=== PATIENT | male | born 1965 | race Caucasian/White ===

== ENCOUNTER 2016-10-26 21:56 | Observation (INO) | payer MEDICAID, MEDICARE ==
--- NOTE | 2016-10-26 22:29 | ED ---
Chest Pain HPI - General Chief Complaint: Chest Pain Stated Complaint: Chest Pain/Rib Pain Time Seen by Provider: 10/26/16 22:06 Source: EMS Mode of arrival: EMS Limitations: no limitations - History of Present Illness Initial Comments: 51 years old male for transfer from [facility] for the further evaluation of his chest pain. He'll chest pain for last 2 days he denies any chest pain today he has shortness of breath no recall some chronic shortness of breath since he has smoked for about 40 years. Denies any chest pain today he has shortness of breath no pleuritic chest pain at all he has been coughing and brings up lots of phlegm has nausea no vomiting. He does have a family history of heart disease his dad had AL at the age of 63 and he himself is a multiple risk factors - Related Data Home Medications Medication Instructions Recorded Confirmed ALPRAZolam [Xanax] 0.5 mg PO TID PRN 10/26/16 10/26/16 Fenofibrate [Lofibra] 160 mg PO DAILY 10/26/16 10/26/16 Losartan Potassium [Cozaar] 100 mg PO DAILY 10/26/16 10/26/16 Metoprolol Tartrate [Lopressor] 25 mg PO DAILY 10/26/16 10/26/16 Venlafaxine HCl [Effexor XR] 150 mg PO DAILY 10/26/16 10/26/16 Zolpidem [Ambien] 10 mg PO HS PRN 10/26/16 10/26/16 chlorproMAZINE HCL [Thorazine] 200 mg PO BID 10/26/16 10/26/16 Allergies Allergy/AdvReac Type Severity Reaction Status Date / Time morphine AdvReac Nausea Verified 10/26/16 22:28 quetiapine [From Seroquel] AdvReac Hallucinati Verified 10/26/16 22:28 ons Review of Systems ROS Statement: Those systems with pertinent positive or pertinent negative responses have been documented in the HPI. ROS Other: All systems not noted in ROS Statement are negative. Past Medical History Past Medical History: GERD/Reflux, GI Bleed, Hypertension Additional Past Medical History / Comment(s): gastric ulcers as a "kid", chronic R shoulder pain, left knee pain History of Any Multi-Drug Resistant Organisms: None Reported Past Surgical History: Hernia Repair, Orthopedic Surgery Additional Past Surgical History / Comment(s): R shoulder surgery x 3, R groin and umbilical hernia repair, L knee arthroscopic surgeries. Past Anesthesia/Blood Transfusion Reactions: Previous Problems w/ Anesthesia Additional Past Anesthesia/Blood Transfusion Reaction / Comment(s): "slow to wake up" Past Psychological History: Bipolar Smoking Status: Current every day smoker Past Alcohol Use History: Occasional Past Drug Use History: Marijuana - Past Family History Father Family Medical History: Coronary Artery Disease (CAD) Additional Family Medical History / Comment(s): Irishr at age 64 of heart dx. Mother Family Medical History: Unable to Obtain Additional Family Medical History / Comment(s): Mother still living at age 77 yrs. Pt states he does not know her health hx but that she is on alot of meds. General Exam - General Exam Comments Initial Comments: General: The patient is awake and alert, in no distress, and does not appear acutely ill. Skin: Skin is warm and dry and no rashes or lesions are noted. Eye: Pupils are equal, round and reactive to light, extra-ocular movements are intact; there is normal conjunctiva bilaterally. Ears, nose, mouth and throat: There are moist mucous membranes and no oral lesions. Neck: The neck is supple, there is no tenderness or JVD. Cardiovascular: There is a regular rate and rhythm. No murmur, rub or gallop is appreciated. Respiratory: To auscultation bilateral, some is consistent with the moderate to severe COPD Gastrointestinal: Soft, non-distended, non-tender abdomen without masses or organomegaly noted. There is no rebound or guarding present. Bowel sounds are unremarkable. Back: There is no tenderness to palpation in the midline. There is no obvious deformity. Musculoskeletal: Normal ROM, no tenderness, There is no pedal edema. There is no calf tenderness or swelling. No cords were appreciated. Neurological: CN II-XII intact, Cranial nerves III through XII are intact. There are no obvious motor or sensory deficits. Coordination appears grossly intact. Speech is normal. Psychiatric: Cooperative, appropriate mood & affect, normal judgment. Limitations: no limitations Course Vital Signs 10/26/16 10/26/16 21:57 22:02 Temperature 97.7 F Pulse Rate 58 L Respiratory 18 20 Rate Blood Pressure 166/86 O2 Sat by Pulse 95 Oximetry Her labs were done at [facility] including EKG transferring physician as interpreted the EKG as a normal EKG, CBC, compressive metabolic panel, troponin , d-dimer and INR were negative Disposition Clinical Impression: Chest pain Disposition: ADMITTED IP TO THIS HOSP Condition: Fair Referrals: None,Stated [Primary Care Provider] - 1-2 days
[2016-10-26] MEDS ORDERED: HEPARIN SODIUM,PORCINE 5,000 UNIT/ML 1 ML VIAL IV ONE (22:47)
[2016-10-26] MEDS ORDERED: NITROGLYCERIN SL TABS 0.4 MG TAB SUBLINGUAL PRN (22:47)
[2016-10-26] MEDS ORDERED: ZOLPIDEM 10 MG TAB PO PRN (22:52)
[2016-10-26] MEDS ORDERED: ALPRAZolam 0.5 MG TAB PO PRN (22:52)
[2016-10-26] MEDS ORDERED: SODIUM CHLORIDE 0.9% 1,000 ML IV SCH (23:00)
[2016-10-26] MEDS ORDERED: HEPARIN SODIUM,PORCINE/D5W PMX 25,000 UNIT in DEXTROSE/WATER 1 500ML.BAG IV SCH (23:00)
[2016-10-26 23:34] VITALS: BMI 29.9
[2016-10-26] MEDS ORDERED: traMADol 50 MG TAB PO PRN (23:48)
[2016-10-26] MEDS: HYDROmorphone 1 MG/ML 1 ML SYRINGE IVP PRN (23:59)
[2016-10-27 00:52] LABS: Troponin I 0.015 ng/mL (0.000-0.034)
[2016-10-27 00:56] LABS: Creatine Kinase MB 3.3 ng/mL (0.0-2.4)
[2016-10-27] MEDS: HYDROmorphone 1 MG/ML 1 ML SYRINGE IVP PRN (06:31)
[2016-10-27 07:06] LABS: Cholesterol 138 mg/dL (<200); HDL Cholesterol 39 mg/dL (40-60); Triglycerides 110 mg/dL (<150)
[2016-10-27 07:35] LABS: Creatine Kinase MB 1.8 ng/mL (0.0-2.4); Troponin I 0.015 ng/mL (0.000-0.034)
[2016-10-27] MEDS ORDERED: chlorproMAZINE 25 MG TAB PO SCH (09:00)
[2016-10-27] MEDS ORDERED: METOPROLOL TARTRATE 25 MG TAB PO SCH (09:00)
[2016-10-27] MEDS ORDERED: VENLAFAXINE HCL ER 75 MG CAP PO SCH (09:00)
[2016-10-27] MEDS ORDERED: LOSARTAN 50 MG TAB PO SCH (09:00)
[2016-10-27] MEDS ORDERED: FENOFIBRATE 160 MG TAB PO SCH (09:00)
[2016-10-27] MEDS ORDERED: ASPIRIN 325 MG TAB PO SCH (09:00)
[2016-10-27 11:54] VITALS: RESP 16
--- NOTE | 2016-10-27 12:38 | P.CRDCN ---
History of Present Illness Consult date: 10/27/16 Requesting physician: Carlos Sainz Consult reason: chest pain Chief complaint: Chest pain History of present illness: This is a 51-year-old gentleman with history of hypertension, hyperlipidemia, nicotine dependence, patient has smoked one to one and a half packs of cigarettes for over 40 years, family history of premature coronary artery disease in his father, depression, anxiety, who actually presented to [facility] with symptoms of right-sided rib pain. He states he's been coughing a significant amount at home, productive sputum, mild fever and chills. He feels that the pain in his ribs was secondary to that and for that reason he went to the emergency room at [place]. While he was there and being questioned, patient also mentioned that he had an episode of chest pain which he described as a sharp pain, with associated pressure and heaviness, he became extremely diaphoretic and short of breath and had an episode of vomiting. She states he's also been more short of breath recently with any exertion. EKG performed at [facility] showed a normal sinus rhythm with right bundle branch block pattern. Sodium 138, potassium 3.9, chloride 107 , CO2 23. BUN 14, creatinine 1.0. White blood cell count 14.1, hemoglobin 16, hematocrit 47, platelet count 338. Troponin 0.02, d-dimer 120. Troponins performed here, 0.015, 0.015. Cholesterol 138, LDL 77, HDL 39, triglycerides 110. EKG performed here showed a sinus bradycardia with right bundle branch block pattern . Chest x-ray did not reveal any acute changes. At the time of my examination this morning, patient persists to have significant productive cough. He is afebrile. Denies any chest pain. Past Medical History Past Medical History: GERD/Reflux, Hypertension Additional Past Medical History / Comment(s): gastric ulcers as a "kid", chronic R shoulder pain, left knee pain History of Any Multi-Drug Resistant Organisms: None Reported Past Surgical History: Hernia Repair, Orthopedic Surgery Additional Past Surgical History / Comment(s): R shoulder surgery x 3, R groin and umbilical hernia repair x2, L knee arthroscopic surgeries. Past Anesthesia/Blood Transfusion Reactions: Previous Problems w/ Anesthesia Additional Past Anesthesia/Blood Transfusion Reaction / Comment(s): "slow to wake up" Past Psychological History: Bipolar Additional Psychological History / Comment(s): Pt lives at home with family members. He is normally independent. He has psychiatric illnesses and sees Dr. Cano for this. Smoking Status: Current every day smoker Past Alcohol Use History: None Reported Past Drug Use History: Marijuana - Past Family History Father Family Medical History: Coronary Artery Disease (CAD) Additional Family Medical History / Comment(s): Samantha at age 64 of heart dx. Mother Family Medical History: Unable to Obtain Additional Family Medical History / Comment(s): Mother still living at age 77 yrs. Pt states he does not know her health hx but that she is on alot of meds. Medications and Allergies Home Medications Medication Instructions Recorded Confirmed Type ALPRAZolam [Xanax] 0.5 mg PO TID PRN 10/26/16 10/26/16 History Fenofibrate [Lofibra] 160 mg PO DAILY 10/26/16 10/26/16 History Losartan Potassium [Cozaar] 100 mg PO DAILY 10/26/16 10/26/16 History Metoprolol Tartrate [Lopressor] 25 mg PO DAILY 10/26/16 10/26/16 History Venlafaxine HCl [Effexor XR] 150 mg PO DAILY 10/26/16 10/26/16 History Zolpidem [Ambien] 10 mg PO HS PRN 10/26/16 10/26/16 History chlorproMAZINE HCL [Thorazine] 200 mg PO BID 10/26/16 10/26/16 History Allergies Allergy/AdvReac Type Severity Reaction Status Date / Time morphine AdvReac Nausea Verified 10/26/16 23:29 quetiapine [From Seroquel] AdvReac Hallucinati Verified 10/26/16 23:29 ons Physical Exam Vitals: Vital Signs Temp Pulse Pulse Resp BP BP Pulse Ox 10/27/16 11:54 98.1 F 60 16 133/63 94 L 10/27/16 07:57 97.9 F 56 L 17 145/76 95 10/27/16 04:00 98.4 F 69 18 147/74 98 10/27/16 03:55 18 10/27/16 00:00 98 F 67 18 142/79 97 10/26/16 23:29 97.7 F 62 18 156/76 95 10/26/16 22:47 62 18 156/76 95 10/26/16 22:02 20 10/26/16 21:57 97.7 F 58 L 18 166/86 95 Intake and Output 10/26/16 10/27/16 10/27/16 22:59 06:59 14:59 Other: # Voids 1 Weight 89.358 kg 89.3 kg PHYSICAL EXAMINATION: HEENT: Head is atraumatic, normocephalic. Pupils equal, round. Neck is supple. There is no elevated jugular venous pressure. HEART EXAMINATION: Heart S1, S2 normal. No murmur or gallop heard. CHEST EXAMINATION: Lungs are clear to auscultation and precussion. No chest wall tenderness is noted on palpation or with deep breathing. ABDOMEN: Soft, nontender. Bowel sounds are heard. No organomegaly noted. EXTREMITIES: 1+ peripheral pulses with no evidence of peripheral edema and no calf tenderness noted. NEUROLOGIC patient is awake, alert and oriented -3. . Results Cardiac Enzymes 10/26/16 10/27/16 Range/Units 23:53 06:18 CK-MB (CK-2) 3.3 H* 1.8 (0.0-2.4) ng/mL Troponin I 0.015 0.015 (0.000-0.034) ng/mL Coagulation 10/27/16 Range/Units 06:18 APTT 48.2 H (22.0-30.0) sec Lipids 10/27/16 Range/Units 06:18 Triglycerides 110 (<150) mg/dL Cholesterol 138 (<200) mg/dL HDL Cholesterol 39 L (40-60) mg/dL Current Medications Generic Name Dose Route Start Last Admin Trade Name Freq PRN Reason Stop Dose Admin Alprazolam 0.5 mg 10/26/16 22:52 Xanax PO TID PRN Anxiety Aspirin 325 mg 10/27/16 09:00 Aspirin PO DAILY MELONY Atorvastatin Calcium 40 mg 10/27/16 21:00 Lipitor PO HS MELONY Chlorpromazine HCl 200 mg 10/27/16 09:00 Thorazine PO BID MELONY Fenofibrate 160 mg 10/27/16 09:00 Lofibra PO DAILY MELONY Hydromorphone HCl 0.5 mg 10/26/16 23:48 10/27/16 06:31 Dilaudid IVP 0.5 mg Q4HR PRN Administration Pain Heparin Sodium/Dextrose 25,000 500 mls @ 20.01 mls/hr 10/26/16 23:00 23:17 unit/ IV Solution IV 11.19 units/kg/hr .Q24H MELONY 20 mls/hr Protocol Administration 11.2 UNITS/KG/HR Sodium Chloride 1,000 mls @ 100 mls/hr 10/26/16 23:00 10/26/16 23:17 Saline 0.9% IV 100 mls/hr .Q10H MELONY Administration Losartan Potassium 100 mg 10/27/16 09:00 Cozaar PO DAILY MELONY Metoprolol Tartrate 25 mg 10/27/16 09:00 Lopressor PO DAILY MELONY Nitroglycerin 0.4 mg 10/26/16 22:47 Nitrostat SUBLINGUAL Q5M PRN Chest Pain Tramadol HCl 50 mg 10/26/16 23:48 10/27/16 11:00 Ultram PO 50 mg Q6HR PRN Administration Moderate Pain Venlafaxine HCl 150 mg 10/27/16 09:00 Effexor Xr PO DAILY MELONY Zolpidem Tartrate 10 mg 10/26/16 22:52 Ambien PO HS PRN Insomnia Intake and Output 10/26/16 10/27/16 10/27/16 22:59 06:59 14:59 Other: # Voids 1 Weight 89.358 kg 89.3 kg EKG Interpretations (text) EKG shows a normal sinus rhythm with right bundle branch block pattern Assessment and Plan Plan: Assessment and plan #1 symptoms of persistent productive cough of yellow sputum, elevated white blood cell count, chills. Possible acute tracheobronchitis. #2 atypical chest discomfort, appears to be musculoskeletal in nature. Likely secondary to excessive coughing. Patient also had an episode of chest pressure and heaviness with associated diaphoresis. Troponin 0.02 at [place], 0.01 5.015 here EKG shows normal sinus rhythm with a right bundle branch block pattern. #3 hypertension #4 hyperlipidemia #5 nicotine dependence #6 depression and anxiety # 7 family history of premature coronary artery disease Plan We will obtain an echocardiogram with Doppler study. Discontinue IV heparin. Decrease aspirin to 81 mg daily. Once the patient's pulmonary status has improved, stress test will be performed to rule out underlying coronary artery disease. Further recommendations to follow. DNP note has been reviewed, I agree with a documented findings and plan of care. Patient was seen and examined.
--- NOTE | 2016-10-27 14:27 | XR ---
EXAMINATION TYPE: XR chest 1V portable DATE OF EXAM: 10/27/2016 HISTORY: Shortness of breath. COMPARISON: None. TECHNIQUE: Single view of the chest is submitted. FINDINGS: Demonstrated are scattered senescent parenchymal change. There is no evidence for focal infiltrate. The heart is stable. Hilar and mediastinal structures are within normal limits. Degenerative changes are seen of the dorsal spine. IMPRESSION: 1. Chronic changes without evidence for acute pulmonary disease.
[2016-10-27 14:49] LABS: Basophils # (A) 0.1 k/uL (0-0.2); Basophils % (A) 0 %; CH 29.9; CHCM 32.2; Eosinophils # (A) 0.5 k/uL (0-0.7); Eosinophils % (A) 4 %; HDW 2.45; HGB 14.4 gm/dL (13.0-17.5); Luc # (Auto) 0.26; Luc % (Auto) 2; Lymphocytes # (A) 2.5 k/uL (1.0-4.8); Lymphocytes % (A) 21 %; MCH 30.4 pg (25.0-35.0); MCHC 32.6 g/dL (31.0-37.0); MCV 93.3 fL (80.0-100.0); Mean Platelet Volume 9.8; Monocytes # (A) 0.7 k/uL (0-1.0); Monocytes % (A) 6 %; Neutrophils # (A) 8.1 k/uL (1.3-7.7); Neutrophils % (A) 67 %; RBC 4.72 m/uL (4.30-5.90); RDW 13.4 % (11.5-15.5); WBC 12.1 k/uL (3.8-10.6); WBC (Perox) 12.09
[2016-10-27 14:58] LABS: ALT 25 U/L (21-72); AST 19 U/L (17-59); Alkaline Phosphatase 75 U/L (38-126); Anion Gap 8 mmol/L; Blood Urea Nitrogen 14 mg/dL (9-20); Calcium 8.7 mg/dL (8.4-10.2); Carbon Dioxide 22 mmol/L (22-30); Chloride 111 mmol/L (98-107); Glucose 91 mg/dL (74-99); Non-African American GFR(MDRD) >60 (>60 ml/min/1.73 sqM); Potassium 4.3 mmol/L (3.5-5.1); Sodium 141 mmol/L (137-145); Total Bilirubin 0.4 mg/dL (0.2-1.3); Total Protein 5.8 g/dL (6.3-8.2)
[2016-10-27 15:51] VITALS: BP 127/59; PULSE 53; TEMP 97.3
[2016-10-27] MEDS ORDERED: ATORVASTATIN 40 MG TAB PO SCH (21:00)
[2016-10-28] MEDS ORDERED: ASPIRIN 81 MG CHEW PO SCH (09:00)
--- NOTE | 2016-10-28 09:58 | ECHOF ---
Referral Reason:chest pain MEASUREMENTS -------- HEIGHT: 172.7 cm WEIGHT: 88.9 kg BP: 133/63 RVIDd: 2.7 cm (< 3.3) IVSd: 1.4 cm (0.6 - 1.1) LVIDd: 4.5 cm (3.9 - 5.3) LVPWd: 1.4 cm (0.6 - 1.1) IVSs: 2.0 cm LVIDs: 2.1 cm LVPWs: 1.6 cm LAESV Index (A-L): 21.92 ml/m Ao Diam: 3.7 cm (2.0 - 3.7) AV Cusp: 2.1 cm (1.5 - 2.6) LA Diam: 3.9 cm (2.7 - 3.8) MV EXCURSION: 15.618 mm (> 18.000) MV EF SLOPE: 95 mm/s (70 - 150) EPSS: 0.8 cm MV E Anibal: 0.90 m/s MV DecT: 251 ms MV A Anibal: 0.78 m/s MV E/A Ratio: 1.15 RAP: 5.00 mmHg RVSP: 18.61 mmHg FINDINGS -------- Resting bradycardia (HR<60bpm). This was a technically adequate study. There is moderate concentric left ventricular hypertrophy. Overall left ventricular systolic function is normal with, an EF between 55 - 60 %. The right ventricle is normal in size and function. Normal LA size by volume 22+/-6 ml/m2. The right atrium is normal in size. The aortic valve is trileaflet, and appears structurally normal. No aortic stenosis or regurgitation. The mitral valve leaflets are mildly thickened. There is trace mitral regurgitation. Trace tricuspid regurgitation present. There is no evidence of pulmonary hypertension. The right ventricular systolic pressure, as measured by Doppler, is 18.61mmHg. The pulmonic valve was not well visualized. The aortic root size is normal. Normal inferior vena cava with normal inspiratory collapse consistent with estimated right atrial pressure of 5 mmHg. The pericardium is normal. There is no pericardial effusion. CONCLUSIONS -------- 1. Resting bradycardia (HR<60bpm). 2. There is no evidence of pulmonary hypertension. 3. The right ventricular systolic pressure, as measured by Doppler, is 18.61mmHg. 4. The pulmonic valve was not well visualized. 5. The aortic root size is normal. 6. There is no pericardial effusion. 7. This was a technically adequate study. 8. There is moderate concentric left ventricular hypertrophy. 9. Overall left ventricular systolic function is normal with, an EF between 55 - 60 %. 10. Normal LA size by volume 22+/-6 ml/m2. 11. The aortic valve is trileaflet, and appears structurally normal. No aortic stenosis or regurgitation. 12. The mitral valve leaflets are mildly thickened. 13. There is trace mitral regurgitation. 14. Trace tricuspid regurgitation present. VENDING SUPERVISOR: Fox Ugalde RDCS
--- NOTE | 2016-10-28 13:10 | HP ---
HISTORY AND PHYSICAL/DISCHARGE SUMMARY DATE OF SERVICE: 10/27/2016 Chief complaint is chest pain. HISTORY OF PRESENT ILLNESS: This is a 51-year-old gentleman with a past history of multiple medical problems including GERD, hypertension, gastric ulcer , history of hernia repair, bipolar, recently followed by Dr. Stanley in the outpatient setting. Was complaining of right-sided chest pain. Patient had multiple episodes of chest pain, chest pain increasing with respiration and cough and patient continues smoking. Because of increased complaints, patient was sent to [facility], admitted for further evaluation and treatment. Cardiology evaluated the patient. There is no history of fever, no history of headache, loss of consciousness or seizure. PAST MEDICAL HISTORY: Hypertension, GERD, stomach ulcers, history of bipolar. Medications prior to admission include, home medications are: 1. Lofibra 160 mg p.o. daily. 2. Thorazine 200 mg p.o. b.i.d. 3. Ambien 10 mg q.h.s. p.r.n. 4. Cozaar 100 mg p.o. daily. 5. Effexor XR 150 mg p.o. daily. 6. Lopressor 25 mg daily. 7. Xanax 0.5 mg t.i.d. p.r.n. Allergies are MORPHINE and SEROQUEL. FAMILY HISTORY: History of CAD. SOCIAL HISTORY: History of smoking . REVIEW OF SYSTEMS: ENT: No diminished hearing, diminished vision. CARDIOVASCULAR: As mentioned earlier. RESPIRATORY: As mentioned earlier. GI: No nausea. : No dysuria. NERVOUS SYSTEM: No numbness or weakness. ALLERGY/IMMUNOLOGY: No asthma or hayfever. MUSCULOSKELETAL: As mentioned earlier. DERMATOLOGY: Negative. ENDOCRINE: No history of diabetes or hypothyroidism. CONSTITUTIONAL: As mentioned earlier. DERMATOLOGY: Negative. RHEUMATOLOGY: Negative. PSYCHIATRY: As mentioned earlier. PHYSICAL EXAM: Patient is alert and oriented x3. Pulse 60, blood pressure 130/60, respirations 16, temperature is 98.4, pulse ox 94% on room air. HEENT: Conjunctivae normal. NECK: No jugular venous distension. CARDIOVASCULAR SYSTEM: S1, S2, muffled. RESPIRATORY: Breath sounds diminished at the bases, a few scattered rhonchi, no crackles. ABDOMEN: Soft, nontender, no mass palpable. LEGS: No edema, no swelling. NERVOUS SYSTEM: Higher functions as mentioned earlier. Moves all 4 limbs, no focal deficits. LYMPHATICS: No lymph node enlargement in the neck, axillae or groin. SKIN: No ulcer, rash, or bleeding. Labs are WBC is 12.1, hemoglobin 14.4. ASSESSMENT: 1. Chest pain, possibly musculoskeletal. 2. Increased WBC. 3. History of gastroesophageal reflux disease. 4. Hypertension. 5. History of nicotine dependence. 6. History of bipolar. RECOMMENDATION: In this 51-year-old gentleman who presented with multiple medical issues, will monitor the patient closely. Continue with the current medication and symptomatic treatment. Otherwise, Cardiology has recommended the patient will be discharged to follow up with Cardiology. A 2D echo has been done. The patient will be asked to resume the home medications and symptomatic treatment. The home medications include, please refer to the discharge summary for those, Xanax, Thorazine, Lofibra, Cozaar, Lopressor, Effexor. Follow up with the primary physician in the outpatient setting, Cardiology in the outpatient setting. BRUCE
== END 2016-10-27 15:58 | disposition home or self-care (01) ==
LOC: EC 21:56 → 3OBS 22:47
PROVIDERS: ADMIT Hospitalist; ATTEND Hospitalist
DX: R07.89 Other chest pain (principal); R05 Cough; R61 Generalized hyperhidrosis; R68.83 Chills (without fever); D72.829 Elevated white blood cell count, unspecified; K21.9 Gastro-esophageal reflux disease without esophagitis; E78.5 Hyperlipidemia, unspecified; I10 Essential (primary) hypertension; F41.9 Anxiety disorder, unspecified; F31.9 Bipolar disorder, unspecified; F17.210 Nicotine dependence, cigarettes, uncomplicated; Z82.49 Family history of ischemic heart disease and other diseases of the circulatory system; Z79.899 Other long term (current) drug therapy; Z88.5 Allergy status to narcotic agent; Z88.8 Allergy status to other drugs, medicaments and biological substances; Z87.11 Personal history of peptic ulcer disease
CPT/HCPCS: 99285; 96376 ×3; 96365; 96366; 96375; 93306; 80061; 80053; 82550 ×2; 82553 ×2; 84484 ×2; 85025; 85730; 71010; G0378 ×2; J1644 ×2; J1170 ×2

== ENCOUNTER 2017-03-01 10:54 | Day surgery (SDC) | payer MEDICARE ==
[~2017-03-01 10:54] MED LIST: ALPRAZolam 0.25 MG TAB PO PRN; ASPIRIN 325 MG TAB PO STA; ATORVASTATIN 80 MG TAB PO STA; SODIUM CHLORIDE 0.9% 1,000 ML in EMPTY BAG 1 BAG IV ONE
[2017-03-01] MEDS ORDERED: METOPROLOL TARTRATE 5 MG/5 ML VIAL IVP ONE ×3 (12:06→12:34)
[2017-03-01] MEDS ORDERED: LIDOCAINE 2% INJ 20 MG/ML (20 ML MDV) ONE (12:25)
[2017-03-01] MEDS ORDERED: MIDAZOLAM 2 MG/2 ML VIAL ONE (12:25)
[2017-03-01] MEDS ORDERED: fentaNYL (PF) 50 MCG/ML 2 ML AMP ONE (12:25)
[2017-03-01] MEDS: MIDAZOLAM 2 MG/2 ML VIAL IVP ONE ×2 (12:28→12:33)
[2017-03-01] MEDS ORDERED: fentaNYL (PF) 50 MCG/ML 2 ML AMP IV ONE (12:28)
[2017-03-01] MEDS ORDERED: LIDOCAINE 2% INJ 20 MG/ML SQ ONE (12:35)
[2017-03-01] MEDS ORDERED: IV FLUID CONTINUATION 1,000 ML IV ONE (12:35)
[2017-03-01] MEDS ORDERED: IOHEXOL 350 MG/ML 125ML BOTTLE INJ ONE (12:48)
[2017-03-01] MEDS ORDERED: RX INFO: IV CONTRAST WAS GIVEN 1 EACH MISC MISCELLANE PRN (12:58)
[2017-03-01] MEDS ORDERED: HYDROcodone/APAP 5-325MG 1 EACH TAB PO PRN (12:58)
[2017-03-01] MEDS ORDERED: SODIUM CHLORIDE 0.9% 1,000 ML IV SCH (13:00)
[2017-03-01 14:45] VITALS: RESP 20
--- NOTE | 2017-03-01 15:32 | CC ---
CARDIAC CATHETERIZATION REPORT Mr. Mccullough is a 51-year-old gentleman who was admitted for cardiac catheterization. This patient continues to have recurrent chest discomfort suggestive of angina syndrome in spite of the medical treatment. Patient has a history of hypertension and dyslipidemia. Because of the persistent chest pain. Patient was recommended to have a cardiac catheterization for definitive diagnosis. PROCEDURE: Right groin was prepped and draped in the usual manner and the skin was infiltrated with 2% Xylocaine. The right femoral artery was entered using Seldinger technique. A #6-Maori sheath was placed in. Selective coronary angiography was then performed in multiple projections and the left ventriculography was performed in the 30 degree MALIN projection. Patient tolerated the procedure well. Sheath was removed and good hemostasis was achieved with the use of Angio-Seal. SEDATION: Moderate sedation was used. Total duration of this sedation is 19 minutes. HEMODYNAMICS: Left ventricular end-diastolic pressure is 8 to 12 mmHg prior to angiography and no gradient is noted across the aortic valve. SELECTIVE CORONARY ANGIOGRAPHY: Left main coronary artery is normal and patent. LAD is an average caliber blood vessel and gives rise to small size diagonal branch. LAD and its branches are normal. Mid LAD has mild irregularities. Circumflex coronary artery is nondominant in distribution and gives a good size obtuse marginal branch. Circumflex coronary artery and its branches are normal. Right coronary artery has minimal irregularity and it is normal. FINAL IMPRESSION: This study reveals minimal irregularity in the coronary arteries. Left ventricular angiography reveals normal left ventricular systolic functions. RECOMMENDATION: Symptomatic medical therapy and the risk factor modification. MMODL / IJN: [id number] /
[2017-03-01 18:07] VITALS: BP 140/82; PULSE 147; TEMP 98
== END 2017-03-01 18:04 | disposition home or self-care (01) ==
LOC: CATHCVL 10:54
PROVIDERS: ATTEND Internal Medicine Cardiovascular Disease
DX: R07.89 Other chest pain (principal); I10 Essential (primary) hypertension; Z82.49 Family history of ischemic heart disease and other diseases of the circulatory system; F17.210 Nicotine dependence, cigarettes, uncomplicated; J44.9 Chronic obstructive pulmonary disease, unspecified; E78.5 Hyperlipidemia, unspecified; Z79.82 Long term (current) use of aspirin; Z79.899 Other long term (current) drug therapy; Z88.5 Allergy status to narcotic agent; Z88.8 Allergy status to other drugs, medicaments and biological substances; Z91.09 Other allergy status, other than to drugs and biological substances
CPT/HCPCS: 93005; 93458; C1760; C1894; C1769; J2001; J2250; J3010; Q9967

== ENCOUNTER → 2022-12-13 | Outpatient (CLI) | payer MEDICARE ==
--- NOTE | 2022-12-13 18:06 | NM ---
EXAMINATION TYPE: NM bone 3 phase DATE OF EXAM: 12/13/2022 COMPARISON: NONE CLINICAL INDICATION: Male, 57 years old with history of M46.46 Discitis; Triple phase bone scintigraphy was performed following the injection of 22.3 mCi Tc 99m MDP. Immedia te images and 6 hours post injection images acquired. FINDINGS: No abnormal uptake is seen within the lumbar spine on the angiographic or blood pool images. On the d elayed images there is moderately intense uptake noted to involve the right L5 vertebral body and pos sibly the L4-5 disc space. The findings are nonspecific and could reflect fracture or underlying lesi on. Discitis/osteomyelitis are also difficult to exclude although there is normal blood flow and bloo d pool activity seen. MRI of the spine is recommended. IMPRESSION: Abnormal increased uptake involving the right L5 vertebral body as discussed above. Furth er characterization with MRI and/or CT is recommended.
== END | disposition home or self-care (01) ==
LOC: RADNMMAIN 07:22
PROVIDERS: ATTEND Physical Medicine & Rehabilitation Pain Medicine
DX: M46.46 Discitis, unspecified, lumbar region (principal)
CPT/HCPCS: 78315; A9503

== ENCOUNTER 2022-12-16 07:30 | Day surgery (SDC) | payer MEDICARE ==
[2022-12-12 10:25] VITALS: BMI 27.3
[2022-12-16 07:29] VITALS: RESP 16; TEMP 97.9
[~2022-12-16 07:30] MED LIST changes: +ALPRAZolam 0.5 MG TAB PO PRN; +ASPIRIN 325 MG TAB ONE; +HEPARIN SODIUM,PORCINE (1 ML) 2,500 UNIT in SODIUM CHLORIDE 0.9% 250 ML IRRIGATION PRN; +HEPARIN SODIUM,PORCINE 10,000 UNIT in SODIUM CHLORIDE 0.9% 1,000 ML IRRIGATION PRN; +LIDOCAINE 1% INJ 10MG/ML (20 ML MDV) ONE; +NITROGLYCERIN SL TABS 0.4 MG TAB SUBLINGUAL PRN; +SODIUM CHLORIDE 0.9% 1,000 ML IV ONE; -SODIUM CHLORIDE 0.9% 1,000 ML in EMPTY BAG 1 BAG IV ONE; +SODIUM CHLORIDE 0.9% 1,000 ML in EMPTY BAG 1 BAG IV SCH; +VERAPAMIL 2.5 MG/ML 2 ML AMP ONE
[2022-12-16] MEDS ORDERED: HEPARIN SODIUM 1,000 UN/ML (10ML VL) ONE (07:36)
[2022-12-16] MEDS ORDERED: MIDAZOLAM 2 MG/2 ML VIAL IVP ONE (07:38)
[2022-12-16] MEDS ORDERED: LIDOCAINE 1% INJ 10MG/ML (20 ML MDV) SQ ONE (07:40)
[2022-12-16] MEDS ORDERED: VERAPAMIL SYRINGE (5 MG/10 ML) INTRAARTER ONE (07:41)
[2022-12-16] MEDS ORDERED: HEPARIN SODIUM 1,000 UN/ML (10ML VL) IV ONE (07:46)
[2022-12-16 07:47] LABS: African American GFR (CKD) 71 (>60 ml/min/1.73 sqM); Anion Gap 9 mmol/L; Basophils # (A) 0.1 k/uL (0-0.2); Basophils % (A) 0 %; Blood Urea Nitrogen 13 mg/dL (9-20); Calcium 9.2 mg/dL (8.4-10.2); Carbon Dioxide 27 mmol/L (22-30); Chloride 102 mmol/L (98-107); Eosinophils # (A) 0.3 k/uL (0-0.7); Eosinophils % (A) 3 %; Glucose 99 mg/dL (74-99); HCT 49.4 % (39.0-53.0); HGB 15.8 gm/dL (13.0-17.5); Lymphocytes # (A) 3.1 k/uL (1.0-4.8); Lymphocytes % (A) 26 %; MCHC 31.9 g/dL (31.0-37.0); Mean Platelet Volume 8.9; Monocytes # (A) 0.8 k/uL (0-1.0); Monocytes % (A) 7 %; Neutrophils # (A) 7.2 k/uL (1.3-7.7); Neutrophils % (A) 61 %; Non-African American GFR(CKD) 61 (>60 ml/min/1.73 sqM); Platelet Count 329 k/uL (150-450); Potassium 4.1 mmol/L (3.5-5.1); RBC 5.25 m/uL (4.30-5.90); RDW 13.8 % (11.5-15.5); Sodium 138 mmol/L (137-145); WBC 11.8 k/uL (3.8-10.6)
[2022-12-16] MEDS ORDERED: IOPAMIDOL-370 100ML BTL INJ ONE (07:54)
[2022-12-16] MEDS ORDERED: HYDROmorphone 0.5 MG/0.5 ML SYRINGE IVP ONE (07:57)
[2022-12-16] MEDS ORDERED: RX INFO: IV CONTRAST WAS GIVEN 1 EACH MISC MISCELLANE PRN (08:04)
--- NOTE | 2022-12-16 08:09 | P.PCN ---
Date of Procedure: 12/16/22 Operative Findings: CARDIAC CATHETERIZATION PERFORMING PHYSICIAN: Lencho Barrow MD, RPVI PROCEDURE PERFORMED: 1. Selective right and left coronary angiogram 2. Left heart catheterization 3. Right radial angiogram 4. Ultrasound-guided access of the right radial artery INDICATION: Shortness of breath concerning for severe CAD in this 57-year-old gentleman with multiple risk factors and known coronary artery disease based on heart catheterization in 2017 COMPLICATION: None APPROACH: Right radial artery LEVEL OF SEDATION: Moderate with a sedation length of 14 minutes PROCEDURE DESCRIPTION: After obtaining an informed consent, the patient was brought to cardiac cardiac cath lab technologist. Local anesthesia was performed using lidocaine subcutaneously. The right radial artery was cannulated using Seldinger technique, the guidewire passed easily, following that we advanced a 5-Qatari sheath dilator assembly, the wire and dilator were removed and sheath was flushed. Following that, 2 mg of verapamil along with 5000 unit heparin were given. Selective right and left coronary angiogram using a 6-Qatari JR4 and JL 3.5 catheters. Following that we did left heart catheterization using 6-Qatari pigtail catheter. The procedure was completed there was no complication. SELECTIVE CORONARY ANGIOGRAM: The right coronary artery: Large caliber vessel and a dominant vessel. Its angiographically normal. Di stally bifurcates into PDA and PLV branches and both appeared to be angiographically normal. Left main: It is angiographically normal. Bifurcates into an LCx and LAD The left circumflex: Large caliber vessel nondominant vessel. Its angiographically normal. Gives rises into the first and second and third OM branches. The left anterior descending artery: Is angiographically normal. Gives rises into 3 diagonal branches the appeared to be angiographically normal HEMODYNAMICS: The LVEDP was 5 mmHg was no significant gradient across aortic valve CONCLUSION: 1. Normal coronary angiogram 2. Low left sided filling pressure POSTPROCEDURE MANAGEMENT: Medical treatment
[2022-12-16] MEDS ORDERED: SODIUM CHLORIDE 0.9% 1,000 ML IV SCH (08:15)
[2022-12-16 12:49] VITALS: BP 139/65; PULSE 67
== END 2022-12-16 11:15 | disposition home or self-care (01) ==
LOC: CATHCVL 07:30
PROVIDERS: ATTEND Internal Medicine Interventional Cardiology
DX: I25.10 Atherosclerotic heart disease of native coronary artery without angina pectoris (principal); I34.0 Nonrheumatic mitral (valve) insufficiency; I10 Essential (primary) hypertension; E78.5 Hyperlipidemia, unspecified; F17.200 Nicotine dependence, unspecified, uncomplicated; Z82.49 Family history of ischemic heart disease and other diseases of the circulatory system; Z88.5 Allergy status to narcotic agent; Z79.811 Long term (current) use of aromatase inhibitors; Z79.82 Long term (current) use of aspirin; Z79.891 Long term (current) use of opiate analgesic; Z79.899 Other long term (current) drug therapy
CPT/HCPCS: 93458; 76937; 80048; 85025; C1769 ×2; C1894; J2250; J2001; J1644; J1170; Q9967

== ENCOUNTER 2023-08-16 10:35 | Inpatient (IN) | payer MEDICARE ==
--- NOTE | 2023-08-16 10:53 | ED ---
Abdominal Pain HPI - General Chief Complaint: Abdominal Pain Stated Complaint: Abd pain-sent by PCP Time Seen by Provider: 08/16/23 10:50 Source: patient, RN notes reviewed, old records reviewed Mode of arrival: ambulatory Limitations: no limitations - History of Present Illness Initial Comments: 58-year-old male presenting to the ER with a chief complaint of abdominal pain. Patient sent by PCP following outpatient CT abdomen pelvis scan. Patient reports for the past couple weeks he has been having an increase in lower abdominal pain. He also states he has been experiencing constipation. Denies any melena or bright red blood per stool. He reports most of his abdominal pain is left- sided and suprapubic. Patient states he has been having chills more frequently. CT abdomen pelvis with contrast from [facility] significant for acute sigmoid diverticulitis with a 4.6 cm abscess adjacent to the sigmoid colon. Denies any known fevers, nausea, vomiting, chest pain, shortness of breath, urinary complaints or peripheral edema. - Related Data Home Medications Medication Instructions Recorded Confirmed Venlafaxine HCl [Effexor XR] 75 mg PO DAILY 10/26/16 12/12/22 ARIPiprazole [Abilify] 5 mg PO DAILY 12/12/22 12/12/22 Atorvastatin [Lipitor] 20 mg PO DAILY 12/12/22 12/12/22 Fenofibrate Nanocrystallized 145 mg PO DAILY 12/12/22 12/12/22 [Tricor] Melatonin [Melatonin ER] 10 mg PO DAILY 12/12/22 12/16/22 Metoprolol Succinate (ER) [Toprol 100 mg PO DAILY 12/12/22 12/12/22 XL] Mirtazapine 30 mg PO DAILY 12/12/22 12/12/22 Omeprazole [PriLOSEC] 20 mg PO AC-BRKFST 12/12/22 12/12/22 amLODIPine [Norvasc] 10 mg PO DAILY 12/12/22 12/12/22 Allergies Allergy/AdvReac Type Severity Reaction Status Date / Time morphine AdvReac Nausea Verified 08/16/23 10:39 quetiapine [From Seroquel] AdvReac Hallucinati Verified 08/16/23 10:39 ons Review of Systems ROS Statement: Those systems with pertinent positive or pertinent negative responses have been documented in the HPI. ROS Other: All systems not noted in ROS Statement are negative. Past Medical History Past Medical History: GERD/Reflux, Hypertension Additional Past Medical History / Comment(s): gastric ulcers as a "kid", chronic R shoulder pain, left knee pain History of Any Multi-Drug Resistant Organisms: None Reported Past Surgical History: Hernia Repair, Orthopedic Surgery Additional Past Surgical History / Comment(s): R shoulder surgery x 3, R groin and umbilical hernia repair x2, L knee arthroscopic surgeries. Past Anesthesia/Blood Transfusion Reactions: Previous Problems w/ Anesthesia Additional Past Anesthesia/Blood Transfusion Reaction / Comment(s): "slow to wake up" Past Psychological History: Bipolar Additional Psychological History / Comment(s): Pt lives at home with family members. He is normally independent. He has psychiatric illnesses and sees Dr. Cano for this. Smoking Status: Current every day smoker Past Alcohol Use History: None Reported Additional Past Alcohol Use History / Comment(s): Pt states he is a "binge" drinker. States he does not drink on a daily basis but when he does it is "enough for me and you together" Past Drug Use History: Marijuana Additional Drug Use History / Comment(s): Pt states he occassionally recreationally smokes Marijuana. - Past Family History Father Family Medical History: Coronary Artery Disease (CAD) Additional Family Medical History / Comment(s): Fatehr at age 64 of heart dx. Mother Family Medical History: No Reported History Additional Family Medical History / Comment(s): Mother still living at age 77 yrs. Pt states he does not know her health hx but that she is on alot of meds. General Exam Limitations: no limitations General appearance: alert, in no apparent distress Respiratory exam: Present: normal lung sounds bilaterally. Absent: respiratory distress, wheezes, rales, rhonchi, stridor Cardiovascular Exam: Present: regular rate, normal rhythm, normal heart sounds. Absent: systolic murmur, diastolic murmur, rubs, gallop, clicks GI/Abdominal exam: Present: soft, tenderness (Left-sided and suprapubic), normal bowel sounds Neurological exam: Present: alert, oriented X3, CN II-XII intact Skin exam: Present: warm, dry, intact, normal color. Absent: rash Course Vital Signs 08/16/23 10:36 Temperature 98.1 F Pulse Rate 88 Respiratory 20 Rate Blood Pressure 165/98 O2 Sat by Pulse 93 L Oximetry - Reevaluation(s) Reevaluation #1: 08/16/23 13:[address] Cai, [facility], who accepts medical admission. Medical Decision Making - Medical Decision Making Was pt. sent in by a medical professional or institution (, HELDER, SURVEILLANCE AGENT, urgent care, hospital, or long term...) When possible be specific @ -PCP for outpatient CT findings of acute sigmoid diverticulitis with abscess. Did you speak to anyone other than the patient for history (EMS, parent, family, police, friend...)? What history was obtained from this source @ -No Did you review nursing and triage notes (agree or disagree)? Why? @ -I reviewed and agree with nursing and triage notes Were old charts reviewed (outside hosp., previous admission, EMS record, old EKG, old radiological studies, urgent care reports/EKG's, long term records)? Report findings @ -Yes I reviewed CT abdomen pelvis from [facility] on 08-15-2023. Findings consistent with acute sigmoid diverticulitis with a 4.6 abscess adjacent to sigmoid colon. Differential Diagnosis (chest pain, altered mental status, abdominal pain women, abdominal pain men, vaginal bleeding, weakness, fever, dyspnea, syncope, headache, dizziness, GI bleed, back pain, seizure, CVA, palpatations, mental health, musculoskeletal)? @ -Differential Abdominal Pain Men: Appendicitis, cholecystitis, diverticulosis, ischemic bowel, pancreatitis, hepatitis, UTI, gastroenteritis, AAA, incarcerated hernia, bowel obstruction, constipation, inflammatory bowel, hepatitis, peptic ulcer disease, splenic infarction, perforated viscus, testicular torsion, this is not meant to be an all-inclusive list EKG interpreted by me (3pts min.). @ -None X-rays interpreted by me (1pt min.). @ -None done CT interpreted by me (1pt min.). @ -None done U/S interpreted by me (1pt. min.). @ -None done What testing was considered but not performed or refused? (CT, X-rays, U/S, labs)? Why? @ -None What meds were considered but not given or refused? Why? @ -None Did you discuss the management of the patient with other professionals (professionals i.e. , PA, SURVEILLANCE AGENT, lab, RT, psych nurse, social work instructor, manager gyn, teacher, youth probation officer, test case developer)? Give summary @ -Yes, case discussed with Dr. Cai [facility], accepts medical admission. Was smoking cessation discussed for >3mins.? @ -I discussed smoking cessation for greater than 3 minutes. The risk of smoking were discussed with the patient including but not limited to risks of cancer, stroke, coronary artery disease and COPD. Also discussed with patient were multiple methods of quitting smoking. Lastly we discussed the financial cost of smoking. Was critical care preformed (if so, how long)? @ -No Were there social determinants of health that impacted care today? How? (Homelessness, low income, unemployed, alcoholism, drug addiction, transportation, low edu. Level, literacy, decrease access to med. care, fpc, rehab)? @ -No Was there de-escalation of care discussed even if they declined (Discuss DNR or withdrawal of care, Hospice)? DNR status @ -No What co-morbidities impacted this encounter? (DM, HTN, Smoking, COPD, CAD, Cancer, CVA, ARF, Chemo, Hep., AIDS, mental health diagnosis, sleep apnea, morbid obesity)? @ -None Was patient admitted / discharged? Hospital course, mention meds given and route, prescriptions, significant lab abnormalities, going to OR and other pertinent info. @ -Admitted. 58-year-old male presented to the ER with chief complaint of abdominal pain. History and physical exam completed. Vitals stable. Patient sent by PCP for evaluation of abnormal CT abd/pelvis. Patient in no signs of acute distress and nontoxic-appearing. Left-sided abdominal tenderness on exam. Mildly hyperactive bowel sounds. Labs obtained significant for white blood c ell count of 11.3. Urine without signs of infection. CT abdomen pelvis with contrast reviewed from [facility] performed on 08-15-2023 significant for acute sigmoid diverticulitis with 4.5cm abscess formation. Admission considered for IV antibiotics. Results discussed with patient, all questions answered. Patient agreeable for admission. Case discussed with Dr. Cai [facility], who accepts medical admission. ID and general surgery on consult. Patient started on IV Zosyn and fluids. Case discussed with the attending, Dr. Mcgowan. Undiagnosed new problem with uncertain prognosis? @ -No Drug Therapy requiring intensive monitoring for toxicity (Heparin, Nitro, Insulin, Cardizem)? @ -No Were any procedures done? @ -No Diagnosis/symptom? @ -Diverticulitis with abscess Acute, or Chronic, or Acute on Chronic? @ -Acute Uncomplicated (without systemic symptoms) or Complicated (systemic symptoms)? @ -Complicated Side effects of treatment? @ -No Exacerbation, Progression, or Severe Exacerbation? @ -No Poses a threat to life or bodily function? How? (Chest pain, USA, GA, pneumonia, PE, COPD, DKA, ARF, appy, cholecystitis, CVA, Diverticulitis, Homicidal, Suicidal, threat to staff... and all critical care pts) @ -Yes diverticulitis - Lab Data Result diagrams: 08/16/23 11:18 08/16/23 11:18 Lab Results 08/16/23 08/16/23 08/16/23 Range/Units 11:18 11:18 11:18 WBC 11.3 H (3.8-10.6) k/uL RBC 5.21 (4.30-5.90) m/uL Hgb 14.8 (13.0-17.5) gm/dL Hct 46.9 (39.0-53.0) % MCV 90.0 (80.0-100.0) fL MCH 28.4 (25.0-35.0) pg MCHC 31.5 (31.0-37.0) g/dL RDW 13.6 (11.5-15.5) % Plt Count 483 H (150-450) k/uL MPV 7.7 Neutrophils % 72 % Lymphocytes % 17 % Monocytes % 6 % Eosinophils % 2 % Basophils % 1 % Neutrophils # 8.2 H (1.3-7.7) k/uL Lymphocytes # 1.9 (1.0-4.8) k/uL Monocytes # 0.6 (0-1.0) k/uL Eosinophils # 0.3 (0-0.7) k/uL Basophils # 0.1 (0-0.2) k/uL Hypochromasia Slight Sodium 140 (137-145) mmol/L Potassium 4.2 (3.5-5.1) mmol/L Chloride 106 (98-107) mmol/L Carbon Dioxide 28 (22-30) mmol/L Anion Gap 6 mmol/L BUN 10 (9-20) mg/dL Creatinine 0.73 (0.66-1.25) mg/dL Est GFR (CKD-EPI)AfAm >90 (>60 ml/min/1.73 sqM) Est GFR (CKD-EPI)NonAf >90 (>60 ml/min/1.73 sqM) Glucose 100 H (74-99) mg/dL Plasma Lactic Acid Kenrick 1.2 (0.7-2.0) mmol/L Calcium 8.8 (8.4-10.2) mg/dL Total Bilirubin 0.3 (0.2-1.3) mg/dL AST 30 (17-59) U/L ALT 26 (4-49) U/L Alkaline Phosphatase 90 (38-126) U/L Total Protein 6.1 L (6.3-8.2) g/dL Albumin 3.0 L (3.5-5.0) g/dL Amylase 52 (30-110) U/L Lipase 29 (23-300) U/L - Radiology Data Radiology results: report reviewed (From [facility]), image reviewed (From [facility]) Disposition Clinical Impression: Diverticulitis of large intestine with abscess Disposition[facility] Condition: Fair Time of Disposition: 12:19
[2023-08-16 11:35] LABS: Basophils # (A) 0.1 k/uL (0-0.2); Basophils % (A) 1 %; Eosinophils # (A) 0.3 k/uL (0-0.7); Eosinophils % (A) 2 %; HCT 46.9 % (39.0-53.0); HGB 14.8 gm/dL (13.0-17.5); Hypochromasia Slight; Lymphocytes # (A) 1.9 k/uL (1.0-4.8); Lymphocytes % (A) 17 %; MCH 28.4 pg (25.0-35.0); MCHC 31.5 g/dL (31.0-37.0); Mean Platelet Volume 7.7; Monocytes # (A) 0.6 k/uL (0-1.0); Monocytes % (A) 6 %; Neutrophils # (A) 8.2 k/uL (1.3-7.7); Neutrophils % (A) 72 %; Platelet Count 483 k/uL (150-450); RBC 5.21 m/uL (4.30-5.90); RDW 13.6 % (11.5-15.5); WBC 11.3 k/uL (3.8-10.6)
[2023-08-16] MEDS: LORazepam 2 MG/ML INJ IV STA (11:40)
[2023-08-16] MEDS: ACETAMINOPHEN TAB 325 MG TAB PO STA (11:48)
[2023-08-16] MEDS: SODIUM CHLORIDE 0.9% 1,000 ML IV STA (11:48)
[2023-08-16 11:49] LABS: ALT 26 U/L (4-49); AST 30 U/L (17-59); African American GFR (CKD) >90 (>60 ml/min/1.73 sqM); Alkaline Phosphatase 90 U/L (38-126); Amylase 52 U/L (30-110); Anion Gap 6 mmol/L; Blood Urea Nitrogen 10 mg/dL (9-20); Calcium 8.8 mg/dL (8.4-10.2); Carbon Dioxide 28 mmol/L (22-30); Chloride 106 mmol/L (98-107); Glucose 100 mg/dL (74-99); Lipase 29 U/L (23-300); Non-African American GFR(CKD) >90 (>60 ml/min/1.73 sqM); Potassium 4.2 mmol/L (3.5-5.1); Sodium 140 mmol/L (137-145); Total Bilirubin 0.3 mg/dL (0.2-1.3); Total Protein 6.1 g/dL (6.3-8.2)
[2023-08-16] MEDS ORDERED: NALOXONE 0.4 MG/ML 1 ML VIAL IV PRN (12:17)
[2023-08-16] MEDS ORDERED: ACETAMINOPHEN TAB 325 MG TAB PO PRN (12:17)
[2023-08-16] MEDS ORDERED: ONDANSETRON 4 MG/2 ML VIAL IVP PRN (12:17)
[2023-08-16] MEDS: PIPERACILLIN-TAZOBACTAM 3.375 GM in SODIUM CHLORIDE 0.9% 100 ML IVPB STA (12:34)
[2023-08-16] MEDS: SODIUM CHLORIDE 0.9% 1,000 ML IV SCH (12:35)
[2023-08-16 12:47] LABS: Appearance,Urine Clear (Clear); Bilirubin,Urine Negative (Negative); Blood,Urine Negative (Negative); Color,Urine Yellow; Glucose,Urine (UA) Negative (Negative); Ketones,Urine Negative (Negative); Leukocyte Esterase,Urine Negative (Negative); Nitrite,Urine Negative (Negative); PH, Urine 6.5 (5.0-8.0); Protein,Urine Trace (Negative); Specific Gravity,Urine 1.018 (1.001-1.035)
--- NOTE | 2023-08-16 14:58 | P.GSCN ---
History of Present Illness Consult date: 08/16/23 History of present illness: CHIEF COMPLAINT: Abdominal pain HISTORY OF PRESENT ILLNESS: This is a 58-year-old male who presented with left lower quadrant abdominal pain x 3 weeks. Patient reports ports he had been dealing with constipation. He reports that his PCP gave him antibiotics for what he believes was diverticulitis. But he continued to have left lower rodri drant pain after completing the antibiotics. He denies any nausea or vomiting. He initially went to [facility] and there they did a CT scan abdomen and pelvis that had reported acute sigmoid diverticulitis with a 4.6 cm abscess adjacent to the sigmoid colon. Patient was transferred to [facility] for surgical eval. Patient is currently on antibiotics. He reports last colonoscopy was about 5 years ago and was unremarkable. Past surgical history includes a repair of the left inguinal hernia and umbilical hernia. Patient denies any cardiac history. PAST MEDICAL HISTORY: See list. PAST SURGICAL HISTORY: See list. MEDICATIONS: See list. ALLERGIES: See list. SOCIAL HISTORY: No illicit drug use. Nicotine dependence. Occasional marijuana use. REVIEW OF SYSTEMS: CONSTITUTIONAL: Denies fever or chills. HEENT: Denies blurred vision, vision changes, or eye pain. Denies hemoptysis ENDOCRINE: Denies heat or cold intolerance. CARDIOVASCULAR: Denies chest pain or pressure. RESPIRATORY: No shortness of breath. GASTROINTESTINAL: Please refer to HPI otherwise unremarkable NEURO: Denies history of seizures. PSYCH: No depression or suicidal ideation HEMATOLOGIC: Denies bleeding disorders. LYMPHATIC: The patient denies any lumps and bumps around the neck. GENITOURINARY: Denies any blood in urine or increased urinary frequency. MUSCULOSKELETAL: Denies myalgias. Denies joint swelling. Denies decreased range of motion beyond patients baseline. SKIN: Denies pruitis. Denies rash. PHYSICAL EXAM: VITAL SIGNS: Reviewed GENERAL: Well-developed in no acute distress. HEENT: No sclera icterus. Extraocular movements grossly intact. Moist buccal mucosa. Head is atraumatic, normocephalic. Hears conversational speech. No nasal drainage. NECK: Supple without lymphadenopathy. CHEST: Non-labored respirations and equal bilateral excursions. CARDIOVASCULAR: Palpable 2+ radial pulses. ABDOMEN: Soft. Nondistended. Tenderness with palpation suprapubic area and left lower quadrant MUSCULOSKELETAL: No clubbing or cyanosis. NEUROLOGIC: No focal or lateralizing signs. Cranial nerves II through XII grossly intact. PSYCH: Appropriate affect. Alert and oriented to person, place and time. SKIN: Well perfused. Good skin turgor. LABORATORY DATA: WBC 11.3 Hgb 14.8 platelets 483 Sodium is 140 potassium is 4.2 creatinine 0.73 Lactic acid 1.2 LFTs normal lipase 29 Urinalysis negative for infection IMAGING: CT scan findings as stated above ASSESSMENT: 1. 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 Signing provider agrees with the documented findings, assessment, and plan of care. Past Medical History Past Medical History: GERD/Reflux, Hypertension Additional Past Medical History / Comment(s): gastric ulcers as a "kid", chronic R shoulder pain, left knee pain History of Any Multi-Drug Resistant Organisms: None Reported Past Surgical History: Hernia Repair, Orthopedic Surgery Additional Past Surgical History / Comment(s): R shoulder surgery x 3, R groin and umbilical hernia repair x2, L knee arthroscopic surgeries. Past Anesthesia/Blood Transfusion Reactions: Previous Problems w/ Anesthesia Additional Past Anesthesia/Blood Transfusion Reaction / Comm: "slow to wake up" Past Psychological History: Bipolar Additional Psychological History / Comment(s): Pt lives at home with family members. He is normally independent. He has psychiatric illnesses and sees Dr. Cano for this. Smoking Status: Current every day smoker Past Alcohol Use History: None Reported Additional Past Alcohol Use History / Comment(s): Pt states he is a "binge" drinker. States he does not drink on a daily basis but when he does it is "enough for me and you together" Past Drug Use History: Marijuana Additional Drug Use History / Comment(s): Pt states he occassionally recreationally smokes Marijuana. - Past Family History Father Family Medical History: Coronary Artery Disease (CAD) Additional Family Medical History / Comment(s): Irishr at age 64 of heart dx. Mother Family Medical History: No Reported History Additional Family Medical History / Comment(s): Mother still living at age 77 yrs. Pt states he does not know her health hx but that she is on alot of meds. Medications and Allergies Home Medications Medication Instructions Recorded Confirmed Type Atorvastatin [Lipitor] 20 mg PO DAILY 12/12/22 08/16/23 History Fenofibrate Nanocrystallized 145 mg PO DAILY 12/12/22 08/16/23 History [Tricor] Metoprolol Succinate (ER) [Toprol 100 mg PO DAILY 12/12/22 08/16/23 History XL] Omeprazole [PriLOSEC] 20 mg PO DAILY 12/12/22 08/16/23 History amLODIPine [Norvasc] 10 mg PO DAILY 12/12/22 08/16/23 History Albuterol Sulfate [Ventolin HFA] 1 - 2 puff INHALATION RT-Q4H PRN 08/16/23 08/16/23 History Buprenorphine HCl/Naloxone HCl 1 film SL BID 08/16/23 08/16/23 History [Suboxone 4 mg-1 mg Sl Film] Losartan [Cozaar] 50 mg PO DAILY 08/16/23 08/16/23 History Tiotropium 2.5 Mcg/Puff [Spiriva 2 puff INHALATION RT-DAILY 08/16/23 08/16/23 History Respimat 2.5 Mcg] Allergies Allergy/AdvReac Type Severity Reaction Status Date / Time morphine AdvReac Nausea Verified 08/16/23 14:18 quetiapine [From Seroquel] AdvReac Hallucinati Verified 08/16/23 14:18 ons Surgical - Exam Vital Signs Temp Pulse Resp BP Pulse Ox 98.1 F 88 20 165/98 93 L 08/16/23 10:36 08/16/23 10:36 08/16/23 10:36 08/16/23 10:36 08/16/23 10:36 Results - Labs 08/16/23 11:18 08/16/23 11:18 Abnormal Lab Results - Last 24 Hours (Table) 08/16/23 08/16/23 08/16/23 Range/Units 11:18 11:18 12:36 WBC 11.3 H (3.8-10.6) k/uL Plt Count 483 H (150-450) k/uL Neutrophils # 8.2 H (1.3-7.7) k/uL Glucose 100 H (74-99) mg/dL Total Protein 6.1 L (6.3-8.2) g/dL Albumin 3.0 L (3.5-5.0) g/dL Urine Protein Trace H (Negative) Diabetes panel 08/16/23 Range/Units 11:18 Sodium 140 (137-145) mmol/L Potassium 4.2 (3.5-5.1) mmol/L Chloride 106 (98-107) mmol/L Carbon Dioxide 28 (22-30) mmol/L BUN 10 (9-20) mg/dL Creatinine 0.73 (0.66-1.25) mg/dL Glucose 100 H (74-99) mg/dL Calcium 8.8 (8.4-10.2) mg/dL AST 30 (17-59) U/L ALT 26 (4-49) U/L Alkaline Phosphatase 90 (38-126) U/L Total Protein 6.1 L (6.3-8.2) g/dL Albumin 3.0 L (3.5-5.0) g/dL Calcium panel 08/16/23 Range/Units 11:18 Calcium 8.8 (8.4-10.2) mg/dL Albumin 3.0 L (3.5-5.0) g/dL Pituitary panel 08/16/23 Range/Units 11:18 Sodium 140 (137-145) mmol/L Potassium 4.2 (3.5-5.1) mmol/L Chloride 106 (98-107) mmol/L Carbon Dioxide 28 (22-30) mmol/L BUN 10 (9-20) mg/dL Creatinine 0.73 (0.66-1.25) mg/dL Glucose 100 H (74-99) mg/dL Calcium 8.8 (8.4-10.2) mg/dL Adrenal panel 08/16/23 Range/Units 11:18 Sodium 140 (137-145) mmol/L Potassium 4.2 (3.5-5.1) mmol/L Chloride 106 (98-107) mmol/L Carbon Dioxide 28 (22-30) mmol/L BUN 10 (9-20) mg/dL Creatinine 0.73 (0.66-1.25) mg/dL Glucose 100 H (74-99) mg/dL Calcium 8.8 (8.4-10.2) mg/dL Total Bilirubin 0.3 (0.2-1.3) mg/dL AST 30 (17-59) U/L ALT 26 (4-49) U/L Alkaline Phosphatase 90 (38-126) U/L Total Protein 6.1 L (6.3-8.2) g/dL Albumin 3.0 L (3.5-5.0) g/dL
[2023-08-16] MEDS: NICOTINE 21MG/24HR PATCH TRANSDERM SCH (20:51)
[2023-08-16] MEDS: PIPERACILLIN-TAZOBACTAM 3.375 GM in SODIUM CHLORIDE 0.9% 100 ML IVPB SCH (20:52)
[2023-08-16] MEDS ORDERED: ALBUTEROL NEBULIZED 2.5 MG/3 ML INHALATION PRN (21:40)
--- NOTE | 2023-08-16 22:04 | P.HPIM ---
History of Present Illness H&P Date: 08/16/23 Chief Complaint: Abdominal pain Patient is a 58-year-old male with known history of hypertension, GERD and history of gastric ulcers as a kid, bipolar disorder and everyday smoker and prior history of umbilical hernia repair presents to ER with complaints of abdominal pain. Patient states that he has been having left lower quadrant abdominal pain for the past 3 weeks. He has been issues with constipation. Denied any diarrhea or blood in the stool. Pain is mainly in the left side and suprapubic region. Patient states that he has pain with coughing and also sweating. Denied any fever. Occasional chills. Patient was sent by his primary care physician for outpatient CT of the abdomen and pelvis. CT of the abdomen pelvis was done at [facility] which showed acute sigmoid diverticulitis with a 4.6 cm abscess adjacent to the sigmoid colon. Denies any prior history of diverticulitis. Denied any dysuria or hematuria. No leg swelling. No complaints of chest pain or shortness of breath. Patient was transferred to [facility] for further evaluation. Laboratory data showed WBC 11.3 hemoglobin 14.8 and platelets 483 Sodium 140 potassium 4.2 chloride 106 bicarb is 28 BUN 10 and creatinine 0.73 and blood sugar 100 Urinalysis negative for infection. Liver enzymes are not elevated. Review of Systems Constitutional: Patient did have chills and cold sweats at home. Denied fever.. No generalized weakness or weight loss. Abdomen: Patient denied nausea vomiting and diarrhea. Patient does have left lower quadrant abdominal pain. Cardiovascular: Patient denies any chest pain or short of breath no palpitation s. Respiratory: patient denied any cough is from production. No shortness of breath Neurologic: Patient denied any numbness or tingling headache. Musculoskeletal: Patient denies any complaints of joint swelling or deformity. Skin: Negative Psychiatric: Negative Endocrine: No heat or cold intolerance. No recent weight gain. Genitourinary: No dysuria or hematuria. All other 14 point ROS negative except the above Past Medical History Past Medical History: GERD/Reflux, Hypertension Additional Past Medical History / Comment(s): gastric ulcers as a "kid", chronic R shoulder pain, left knee pain History of Any Multi-Drug Resistant Organisms: None Reported Past Surgical History: Hernia Repair, Orthopedic Surgery Additional Past Surgical History / Comment(s): R shoulder surgery x 3, R groin and umbilical hernia repair x2, L knee arthroscopic surgeries. Past Anesthesia/Blood Transfusion Reactions: Previous Problems w/ Anesthesia Additional Past Anesthesia/Blood Transfusion Reaction / Comment(s): "slow to wake up" Past Psychological History: Bipolar Additional Psychological History / Comment(s): Pt lives at home with family members. He is normally independent. He has psychiatric illnesses and sees Dr. Cano for this. Smoking Status: Current every day smoker Past Alcohol Use History: None Reported Additional Past Alcohol Use History / Comment(s): Pt states he is a "binge" drinker. States he does not drink on a daily basis but when he does it is "enough for me and you together" Past Drug Use History: Marijuana Additional Drug Use History / Comment(s): Pt states he occassionally recreationally smokes Marijuana. - Past Family History Father Family Medical History: Coronary Artery Disease (CAD) Additional Family Medical History / Comment(s): Irishr at age 64 of heart dx. Mother Family Medical History: No Reported History Additional Family Medical History / Comment(s): Mother still living at age 77 yrs. Pt states he does not know her health hx but that she is on alot of meds. Medications and Allergies Home Medications Medication Instructions Recorded Confirmed Type Atorvastatin [Lipitor] 20 mg PO DAILY 12/12/22 08/16/23 History Fenofibrate Nanocrystallized 145 mg PO DAILY 12/12/22 08/16/23 History [Tricor] Metoprolol Succinate (ER) [Toprol 100 mg PO DAILY 12/12/22 08/16/23 History XL] Omeprazole [PriLOSEC] 20 mg PO DAILY 12/12/22 08/16/23 History amLODIPine [Norvasc] 10 mg PO DAILY 12/12/22 08/16/23 History Albuterol Sulfate [Ventolin HFA] 1 - 2 puff INHALATION RT-Q4H PRN 08/16/23 08/16/23 History Buprenorphine HCl/Naloxone HCl 1 film SL BID 08/16/23 08/16/23 History [Suboxone 4 mg-1 mg Sl Film] Losartan [Cozaar] 50 mg PO DAILY 08/16/23 08/16/23 History Tiotropium 2.5 Mcg/Puff [Spiriva 2 puff INHALATION RT-DAILY 04/24/24 04/24/24 History Respimat 2.5 Mcg] Allergies Allergy/AdvReac Type Severity Reaction Status Date / Time morphine AdvReac Nausea Verified 08/16/23 14:18 quetiapine [From Seroquel] AdvReac Hallucinati Verified 08/16/23 14:18 ons Physical Exam Vitals: Vital Signs Temp Pulse Resp BP Pulse Ox 08/16/23 17:00 86 16 136/74 99 08/16/23 16:34 65 18 146/92 93 L 08/16/23 10:36 98.1 F 88 20 165/98 93 L Intake and Output 08/16/23 08/16/23 08/16/23 06:59 14:59 22:59 Other: Weight 81.647 kg PHYSICAL EXAMINATION: Patient is lying in the bed comfortably, no acute distress, awake alert and bushra ented.. HEENT: Normocephalic. Neck is supple. Pupils reactive. Nostrils clear. Oral cavity is moist. Neck reveals no JVD, carotid bruits, or thyromegaly. CHEST EXAMINATION: Trachea is central. Symmetrical expansion. Lung wallace clear to auscultation and percussion. CARDIAC: Normal S1, S2 with no gallops. No murmurs ABDOMEN: Soft. Bowel sounds present, mild left lower quadrant tenderness. No guarding or rigidity. No organomegaly. No abdominal bruits. Extremities: reveal no edema. No clubbing or cyanosis Neurologically awake, alert, oriented x3 with well-coordinated movements. No focal deficits noted Skin: No rash or skin lesions. Psychiatric: Coperative. Nonsuicidal Musculoskeletal: No joint swelling or deformity. Normal range of motion. Results CBC & Chem 7: 08/16/23 11:18 08/16/23 11:18 Labs: Abnormal Lab Results - Last 24 Hours (Table) 08/16/23 08/16/23 08/16/23 Range/Units 11:18 11:18 12:36 WBC 11.3 H (3.8-10.6) k/uL Plt Count 483 H (150-450) k/uL Neutrophils # 8.2 H (1.3-7.7) k/uL Glucose 100 H (74-99) mg/dL Total Protein 6.1 L (6.3-8.2) g/dL Albumin 3.0 L (3.5-5.0) g/dL Urine Protein Trace H (Negative) Thrombosis Risk Factor Assmnt - DVT/VTE Prophylaxis DVT/VTE Prophylaxis: Pharmacologic Prophylaxis ordered Assessment and Plan Assessment: Acute sigmoid diverticulitis with 4.6 cm abscess adjacent to the sigmoid colon. Abdominal pain mainly left lower quadrant secondary to above Hypertension GERD History of gastric ulcer as a kid Bipolar disorder Current everyday smoker Occasional marijuana use Polysubstance use currently on Suboxone GERD DVT prophylaxis with heparin subcu Plan: Patient will be continued on IV hydration with normal saline. Continue NPO. Continue with antibiotics in the form of Zosyn. Follow-up blood cultures. Patient will be continued on pain management and follow-up closely. General surgery was consulted for evaluation. Continue home blood pressure medications and titrate dose as needed. Follow-up closely. Current with other home medications including Suboxone. Time with Patient: Greater than 30
--- NOTE | 2023-08-16 22:48 | P.CONS ---
History of Present Illness - Reason for Consult Consult date: 08/16/23 Diverticulitis with abscess Requesting physician: Marielos Goldberg - Chief Complaint Abdominal pain x few days - History of Present Illness Patient is a 58-year-old male with a past medical history significant for reflux hypertension previous history of hernia repair, patient apparently has been dealing with abdominal pain that has been going on for more than a week has been evaluated in the outpatient setting by his primary care physician and has been treated with a course of antibiotic for presumed diverticulitis patient mention he did have some improvement in symptoms initially however the pain did came back after completion of his antibiotic he is not sure about the name of those antibiotics subsequently patient did have a CT abdominal pelvis that was suspicious for acute perforated diverticulitis with an abscess with the patient has been sent to the ER for further evaluation. At the time my evaluation patient denies having any fever or any chills and no fever was recorded on presentation to the hospital patient was not tachycardic hypotensive or hypoxic patient denies having any headache or URI symptoms no chest pain shortness of breath or cough denies any nausea vomiting has been complaining of pain to the lower abdominal area mostly to the left side is coming to be sharp moderate intensity without radiation denies having any diarrhea however the patient is constipated patient did have a white count of 11.3 creatinine 0.73 liver enzymes normal amylase lipase normal urine negative patient was started on Zosyn infectious was consulted for further management of antibiotic therapy Review of Systems Positive point and negatives has been mentioned in the HPI, complete review of systems was performed and all other systems are negative Past Medical History Past Medical History: GERD/Reflux, Hypertension Additional Past Medical History / Comment(s): gastric ulcers as a "kid", chronic R shoulder pain, left knee pain History of Any Multi-Drug Resistant Organisms: None Reported Past Surgical History: Hernia Repair, Orthopedic Surgery Additional Past Surgical History / Comment(s): R shoulder surgery x 3, R groin and umbilical hernia repair x2, L knee arthroscopic surgeries. Past Anesthesia/Blood Transfusion Reactions: Previous Problems w/ Anesthesia Additional Past Anesthesia/Blood Transfusion Reaction / Comm: "slow to wake up" Past Psychological History: Bipolar Additional Psychological History / Comment(s): Pt lives at home with family members. He is normally independent. He has psychiatric illnesses and sees Dr. Cano for this. Smoking Status: Current every day smoker Past Alcohol Use History: None Reported Additional Past Alcohol Use History / Comment(s): Pt states he is a "binge" drinker. States he does not drink on a daily basis but when he does it is "enough for me and you together" Past Drug Use History: Marijuana Additional Drug Use History / Comment(s): Pt states he occassionally recreationally smokes Marijuana. - Past Family History Father Family Medical History: Coronary Artery Disease (CAD) Additional Family Medical History / Comment(s): Irishr at age 64 of heart dx. Mother Family Medical History: No Reported History Additional Family Medical History / Comment(s): Mother still living at age 77 yrs. Pt states he does not know her health hx but that she is on alot of meds. Medications and Allergies Home Medications Medication Instructions Recorded Confirmed Type Atorvastatin [Lipitor] 20 mg PO DAILY 12/12/22 08/16/23 History Fenofibrate Nanocrystallized 145 mg PO DAILY 12/12/22 08/16/23 History [Tricor] Metoprolol Succinate (ER) [Toprol 100 mg PO DAILY 12/12/22 08/16/23 History XL] Omeprazole [PriLOSEC] 20 mg PO DAILY 12/12/22 08/16/23 History amLODIPine [Norvasc] 10 mg PO DAILY 12/12/22 08/16/23 History Albuterol Sulfate [Ventolin HFA] 1 - 2 puff INHALATION RT-Q4H PRN 08/16/23 History Buprenorphine HCl/Naloxone HCl 1 film SL BID 08/16/23 08/16/23 History [Suboxone 4 mg-1 mg Sl Film] Tiotropium 2.5 Mcg/Puff [Spiriva 2 puff INHALATION RT-DAILY 08/16/23 08/16/23 History Respimat 2.5 Mcg] Acetaminophen Tab [Tylenol] 1,000 mg PO Q6H tab 08/21/23 Rx Losartan [Cozaar] 50 mg PO BID #60 tab 08/21/23 Rx Nicotine 21Mg/24Hr Patch [Habitrol] 1 patch TRANSDERM DAILY patch 08/21/23 Rx Pantoprazole [Protonix] 40 mg PO DAILY #30 tab 08/21/23 Rx Piperacillin-Tazobactam [Zosyn] 3.375 gm IVPB Q8H 14 Days #42 each 08/21/23 Rx Allergies Allergy/AdvReac Type Severity Reaction Status Date / Time morphine AdvReac Nausea Verified 08/16/23 14:18 quetiapine [From Seroquel] AdvReac Hallucinati Verified 08/16/23 14:18 ons Physical Exam Vitals: Vital Signs Temp Pulse Resp BP Pulse Ox 08/16/23 10:36 98.1 F 88 20 165/98 93 L Intake and Output 08/16/23 08/16/23 08/16/23 06:59 14:59 22:59 Other: Weight 81.647 kg GENERAL DESCRIPTION: Middle-aged male lying in bed, no distress. No tachypnea or accessory muscle of respiration use. HEENT: Shows Pallor , no scleral icterus. Oral mucous membrane is dry. No p haryngeal erythema or thrush NECK: Trachea central, no thyromegaly. LUNGS: Unlabored breathing. Clear to auscultation anteriorly. No wheeze or crackle. HEART: S1, S2, regular rate and rhythm. No loud murmur ABDOMEN: Soft, mild tenderness and no rigidity EXTREMITIES: No edema of feet. SKIN: No rash, no masses palpable. NEUROLOGICAL: The patient is awake, alert, oriented x3, mood and affect normal. Results CBC & Chem 7: 08/21/23 05:57 08/21/23 05:57 Labs: Abnormal Lab Results - Last 24 Hours (Table) 08/16/23 08/16/23 08/16/23 Range/Units 11:18 11:18 12:36 WBC 11.3 H (3.8-10.6) k/uL Plt Count 483 H (150-450) k/uL Neutrophils # 8.2 H (1.3-7.7) k/uL Glucose 100 H (74-99) mg/dL Total Protein 6.1 L (6.3-8.2) g/dL Albumin 3.0 L (3.5-5.0) g/dL Urine Protein Trace H (Negative) Assessment and Plan (1) Diverticulitis of large intestine with abscess Status: Acute Code(s): K57.20 - DVTRCLI OF LG INT W PERFORATION AND ABSCESS W/O BLEEDING SNOMED Code(s): 5281062270488 (2) Leukocytosis Status: Acute Code(s): D72.829 - ELEVATED WHITE BLOOD CELL COUNT, UNSPECIFIED SNOMED Code(s): 546348606 Plan: 1patient presented to hospital with abdominal pain nausea and constipation and this patient has been diagnosed with a acute complicated diverticulitis with perforation and abscess failing outpatient oral antibiotic therapy. 2await IR drainage of this abscess and fluid should be sent for culture both aerobic and anaerobic 3-Zosyn 3.375 g every 8 hours along with bowel rest We will follow on clinical condition and cultures to further adjust medication if needed Thank you for this consultation we will follow the patient along with you Dictation was produced using [employer] dictation software. please excuse any grammatical, word or spelling errors. Time with Patient: Greater than 30
[2023-08-17] MEDS: TEMAZEPAM 7.5 MG CAP PO STA (00:04)
[2023-08-17] MEDS: NON FORMULARY DRUG (Buprenorphine Hcl/Naloxone Hcl [Suboxone 4 Mg-1 Mg Sl Film] 1 EACH Fil SUBLINGUAL SCH (00:04)
[2023-08-17] MEDS: HEPARIN SODIUM,PORCINE 5,000 UNIT/ML 1 ML VIAL SQ SCH (00:04)
[2023-08-17] MEDS: IPRATROPIUM 0.5 MG/2.5 ML NEBU INHALATION SCH (08:12)
[2023-08-17] MEDS: IBUPROFEN 400 MG TAB PO PRN (09:50)
[2023-08-17] MEDS: ATORVASTATIN 20 MG TAB PO SCH (09:51)
[2023-08-17] MEDS: METOPROLOL SUCCINATE (ER) 100 MG TAB.ER.24H PO SCH (09:51)
[2023-08-17] MEDS: amLODIPine 10 MG TAB PO SCH (09:51)
[2023-08-17] MEDS: FENOFIBRATE 160 MG TAB PO SCH (09:51)
[2023-08-17] MEDS: PANTOPRAZOLE 40 MG TABLET PO SCH (09:51)
[2023-08-17] MEDS: LOSARTAN 50 MG TAB PO SCH ×2 (09:51→20:40)
[2023-08-17 10:59] LABS: Basophils # (A) 0.06 X 10*3/uL (0.00-0.10); Basophils % (A) 0.6 %; Eosinophils # (A) 0.33 X 10*3/uL (0.04-0.35); Eosinophils % (A) 3.2 %; HCT 42.8 % (39.6-50.0); HGB 13.5 g/dL (13.0-17.0); Lymphocytes # (A) 2.29 X 10*3/uL (0.90-5.00); Lymphocytes % (A) 22.3 %; MCH 27.6 pg (27.0-32.0); MCHC 31.5 g/dL (32.0-37.0); MCV 87.3 FL (80.0-97.0); Mean Platelet Volume 9.6 FL (9.5-12.2); Monocytes # (A) 0.86 X 10*3/uL (0.20-1.00); Monocytes % (A) 8.4 %; NRBC Per 100 WBC 0 X 10*3/uL (0.00-0.01); Neutrophils # (A) 6.67 X 10*3/uL (1.80-7.70); Platelet Count 438 X 10*3/uL (140-440); RDW 13.5 % (11.5-14.5); WBC 10.26 X 10*3/uL (4.50-10.00)
--- NOTE | 2023-08-17 11:22 | P.PN ---
Subjective Progress Note Date: 08/17/23 CHIEF COMPLAINT: Diverticulitis with abscess HISTORY OF PRESENT ILLNESS: Patient reports about the same mild tenderness in the left lower quadrant. He is having bowel movements. Denies any nausea or vomiting. He is requesting more to eat. Interventional radiology was consulted for drainage of the abscess. Unfortunately no interventional radiologist available until Monday. Afebrile. WBC is down to 10.26 yesterday PHYSICAL EXAM: VITAL SIGNS: Reviewed GENERAL: Well-developed in no acute distress. HEENT: No sclera icterus. Extraocular movements grossly intact. Moist buccal mucosa. Head is atraumatic, normocephalic. Hears conversational speech. No nasal drainage. NECK: Supple without lymphadenopathy. CHEST: Non-labored respirations and equal bilateral excursions. CARDIOVASCULAR: Palpable 2+ radial pulses. ABDOMEN: Soft. Nondistended. Left lower quadrant tenderness with palpation MUSCULOSKELETAL: No clubbing or cyanosis. NEUROLOGIC: No focal or lateralizing signs. Cranial nerves II through XII grossly intact. PSYCH: Appropriate affect. Alert and oriented to person, place and time. SKIN: Well perfused. Good skin turgor. ASSESSMENT: 1. Acute sigmoid diverticulitis with abscess PLAN: -Continue antibiotics -No interventional radiologist available until Monday for drainage of diverticular abscess -Continue IV fluids -Keep patient n.p.o. except for ice chips -Consult cardiology for cardiac risk assessment for possible colectomy -EKG and echo ordered Physician Viscosity Inspector note has been reviewed by physician. Signing provider agrees with the documented findings, assessment, and plan of care. Objective - Vital Signs Vital signs: Vital Signs Temp 98.1 F 08/17/23 07:09 Pulse 77 08/17/23 08:19 Resp 20 08/17/23 07:09 BP 154/99 08/17/23 07:09 Pulse Ox 96 08/17/23 07:09 FiO2 Intake & Output 08/16/23 08/17/23 08/17/23 18:59 06:59 18:59 Intake Total 1065 Balance 1065 Weight 81.647 kg 81.647 kg Intake: Intake, IV Titration 1065 Amount Piperacillin-Tazobactam 3 200 .375 gm In Sodium Chloride 0.9% 100 ml @ 25 mls/hr IVPB Q8H [facility] Rx#: [id number] Sodium Chloride 0.9% 1, 865 000 ml @ 75 mls/hr IV . [id number] [facility] Rx#:[id number] Other: Voiding Method Toilet Urinal # Voids 3 - Labs CBC & Chem 7: 08/17/23 06:48 08/16/23 11:18 Labs: Abnormal Lab Results - Last 24 Hours (Table) 08/16/23 08/16/23 08/16/23 Range/Units 11:18 11:18 12:36 WBC 11.3 H (3.8-10.6) k/uL MCHC (32.0-37.0) g/dL Plt Count 483 H (150-450) k/uL Immature Gran # (0.00-0.04) X 10*3/uL Neutrophils # 8.2 H (1.3-7.7) k/uL Glucose 100 H (74-99) mg/dL Total Protein 6.1 L (6.3-8.2) g/dL Albumin 3.0 L (3.5-5.0) g/dL Urine Protein Trace H (Negative) 08/17/23 Range/Units 06:48 WBC 10.26 H (3.8-10.6) k/uL MCHC 31.5 L (32.0-37.0) g/dL Plt Count (150-450) k/uL Immature Gran # 0.05 H (0.00-0.04) X 10*3/uL Neutrophils # (1.3-7.7) k/uL Glucose (74-99) mg/dL Total Protein (6.3-8.2) g/dL Albumin (3.5-5.0) g/dL Urine Protein (Negative)
[2023-08-17] MEDS: metroNIDAZOLE-NS PMX 500 MG in SALINE 1 100ML.BAG IVPB SCH (11:42)
[2023-08-17] MEDS: HYDROmorphone 0.5 MG/0.5 ML SYRINGE IVP PRN (11:42)
--- NOTE | 2023-08-17 13:56 | P.CRDCN ---
History of Present Illness History of present illness: HISTORY OF PRESENT ILLNESS: This is a 58-year-old male with a past medical history significant for hypertension, hyperlipidemia, nicotine dependence, and mitral regurgitation. Patient follows in the office with Dr. Barrow. We have been asked to see the patient in consultation for cardiac risk assessment. Patient examined at the bedside. Patient is admitted to the hospital secondary to sigmoid diverticulitis with abscess formation. Interventional radiology was consulted however there is no radiologist available for IR drainage until Monday. He is currently receiving IV antibiotics. General surgery is planning for possible colectomy. The patient denies any chest pain or pressure. He denies any shortness of breath. Blood pressure is on the higher side with a systolic between [id number]. DIAGNOSTICS: - EKG reveals sinus mechanism with no signs of acute ischemia - Laboratory data: WBC 11.3. Hemoglobin 14.8. Platelet count 483. Sodium 140. Potassium 4.2. BUN 10. Creatinine 0.73. Lactic acid 1.2. - Current home cardiac medications include losartan 50 mg daily, Lipitor 20 mg daily, Tricor 145 mg daily, metoprolol succinate 100 mg daily, amlodipine 10 mg daily. - Most recent echocardiogram obtained in July 2022 revealing normal EF, moderate LVH, mild to moderate MR - Cardiac catheterization history: November 2022 revealing normal coronary angiogram and low left-sided filling pressures. Medical management was recommended. REVIEW OF SYSTEMS: At the time of my exam: CONSTITUTIONAL: Denies fever or chills. HEENT: Denies blurred vision, vision changes, or eye pain. Denies hemoptysis CARDIOVASCULAR: Denies chest pain. Denies orthopnea. Denies PND. Denies palpit ations RESPIRATORY: Denies shortness of breath. GASTROINTESTINAL: Denies abdominal pain. Denies nausea or vomiting. HEMATOLOGIC: Denies bleeding disorders. GENITOURINARY: Denies any blood in urine. SKIN: Denies pruitis. Denies rash. PHYSICAL EXAM: VITAL SIGNS: Reviewed. GENERAL: Well-developed in no acute distress. HEENT: Head is normocephalic. Pupils are equal, round. Sclerae anicteric. Mucous membranes of the mouth are moist. Neck supple. No JVD or thyromegaly LUNGS: Respirations even and unlabored. Lungs essentially clear to auscultation bilaterally. HEART: Regular rate and rhythm. S1 and S2 heard. ABDOMEN: Soft. Nondistended. Nontender. EXTREMITIES: Normal range of motion. No clubbing or cyanosis. Peripheral pulses intact. No lower extremity edema NEUROLOGIC: Awake and alert. Oriented x 3. ASSESSMENT: Acute sigmoid diverticulitis with abscess Hypertension Hyperlipidemia Mild to moderate mitral regurgitation Normal coronary arteries, per cardiac catheterization 2022 Nicotine dependence Marijuana use Bipolar disorder PLAN: Obtain 2D echo to assess cardiac structure and function Continue current cardiac medications Increase losartan to 50 mg twice a day for optimal blood pressure control If surgical intervention is recommended, there are no absolute contraindications for patient to proceed from a cardiac standpoint Further recommendations pending patient course Nurse practitioner note has been reviewed by physician. Signing provider agrees with the documented findings, assessment, and plan of care documented by RIGGING ENGINEER as a scribe. Past Medical History Past Medical History: GERD/Reflux, Hypertension Additional Past Medical History / Comment(s): gastric ulcers as a "kid", chronic R shoulder pain, left knee pain History of Any Multi-Drug Resistant Organisms: None Reported Past Surgical History: Hernia Repair, Orthopedic Surgery Additional Past Surgical History / Comment(s): R shoulder surgery x 3, R groin and umbilical hernia repair x2, L knee arthroscopic surgeries. Past Anesthesia/Blood Transfusion Reactions: Previous Problems w/ Anesthesia Additional Past Anesthesia/Blood Transfusion Reaction / Comment(s): "slow to wake up" Past Psychological History: Bipolar Additional Psychological History / Comment(s): Pt lives at home with family members. He is normally independent. He has psychiatric illnesses and sees Dr. Cano for this. Smoking Status: Current every day smoker Past Alcohol Use History: None Reported Additional Past Alcohol Use History / Comment(s): Pt states he is a "binge" drinker. States he does not drink on a daily basis but when he does it is "enough for me and you together" Past Drug Use History: Marijuana Additional Drug Use History / Comment(s): Pt states he occassionally recreationally smokes Marijuana. - Past Family History Father Family Medical History: Coronary Artery Disease (CAD) Additional Family Medical History / Comment(s): Irishr at age 64 of heart dx. Mother Family Medical History: No Reported History Additional Family Medical History / Comment(s): Mother still living at age 77 yrs. Pt states he does not know her health hx but that she is on alot of meds. Medications and Allergies Home Medications Medication Instructions Recorded Confirmed Type Atorvastatin [Lipitor] 20 mg PO DAILY 12/12/22 08/16/23 History Fenofibrate Nanocrystallized 145 mg PO DAILY 12/12/22 08/16/23 History [Tricor] Metoprolol Succinate (ER) [Toprol 100 mg PO DAILY 12/12/22 08/16/23 History XL] Omeprazole [PriLOSEC] 20 mg PO DAILY 12/12/22 08/16/23 History amLODIPine [Norvasc] 10 mg PO DAILY 12/12/22 08/16/23 History Albuterol Sulfate [Ventolin HFA] 1 - 2 puff INHALATION RT-Q4H PRN 08/16/23 08/16/23 History Buprenorphine HCl/Naloxone HCl 1 film SL BID 08/16/23 08/16/23 History [Suboxone 4 mg-1 mg Sl Film] Losartan [Cozaar] 50 mg PO DAILY 08/16/23 08/16/23 History Tiotropium 2.5 Mcg/Puff [Spiriva 2 puff INHALATION RT-DAILY 08/16/23 08/16/23 History Respimat 2.5 Mcg] Allergies Allergy/AdvReac Type Severity Reaction Status Date / Time morphine AdvReac Nausea Verified 08/16/23 14:18 quetiapine [From Seroquel] AdvReac Hallucinati Verified 08/16/23 14:18 ons Physical Exam Vitals: Vital Signs Temp Pulse Pulse Resp BP BP Pulse Ox 08/17/23 08:19 77 08/17/23 08:12 76 08/17/23 07:09 98.1 F 78 20 154/99 96 08/17/23 02:00 97.3 F L 77 16 147/89 96 08/16/23 22:00 98 F 66 16 151/84 95 08/16/23 17:00 86 16 136/74 99 08/16/23 16:34 65 18 146/92 93 L Intake and Output 08/16/23 08/17/23 08/17/23 22:59 06:59 14:59 Intake Total 1065 Balance 1065 Intake: Intake, IV Titration 1065 Amount Piperacillin-Tazobactam 3 200 .375 gm In Sodium Chloride 0.9% 100 ml @ 25 mls/hr IVPB Q8H [facility] Rx#: [id number] Sodium Chloride 0.9% 1, 865 000 ml @ 75 mls/hr IV . [id number] [facility] Rx#:[id number] Other: Voiding Method Toilet Urinal # Voids 3 Weight 81.647 kg Results 08/17/23 06:48 08/16/23 11:18 Cardiac Enzymes 08/16/23 Range/Units 11:18 AST 30 (17-59) U/L CBC 08/16/23 Range/Units 11:18 WBC 11.3 H (3.8-10.6) k/uL RBC 5.21 (4.30-5.90) m/uL Hgb 14.8 (13.0-17.5) gm/dL Hct 46.9 (39.0-53.0) % Plt Count 483 H (150-450) k/uL Comprehensive Metabolic Panel 08/16/23 Range/Units 11:18 Sodium 140 (137-145) mmol/L Potassium 4.2 (3.5-5.1) mmol/L Chloride 106 (98-107) mmol/L Carbon Dioxide 28 (22-30) mmol/L BUN 10 (9-20) mg/dL Creatinine 0.73 (0.66-1.25) mg/dL Glucose 100 H (74-99) mg/dL Calcium 8.8 (8.4-10.2) mg/dL AST 30 (17-59) U/L ALT 26 (4-49) U/L Alkaline Phosphatase 90 (38-126) U/L Total Protein 6.1 L (6.3-8.2) g/dL Albumin 3.0 L (3.5-5.0) g/dL Current Medications Generic Name Dose Route Start Last Admin Trade Name Freq PRN Reason Stop Dose Admin Acetaminophen 650 mg 08/16/23 12:17 Acetaminophen Tab 325 Mg Tab PO Q6HR PRN Mild Pain or Fever > 100.5 Albuterol Sulfate 2.5 mg 08/16/23 21:40 Albuterol Nebulized 2.5 Mg/3 Ml INHALATION RT-Q4H PRN Shortness Of Breath Amlodipine Besylate 10 mg 08/17/23 09:00 08/17/23 09:51 Amlodipine 10 Mg Tab PO 10 mg DAILY [facility] Administration Atorvastatin Calcium 20 mg 08/17/23 09:00 08/17/23 09:51 Atorvastatin 20 Mg Tab PO 20 mg DAILY [facility] Administration Fenofibrate 160 mg 08/17/23 09:00 08/17/23 09:51 Fenofibrate 160 Mg Tab PO 160 mg DAILY [facility] Administration Heparin Sodium (Porcine) 5,000 unit 08/17/23 00:00 08/17/23 09:52 Heparin Sodium,Porcine 5,000 Unit/Ml 1 Ml Vial SQ 5,000 unit Q8HR [facility] Administration Sodium Chloride 1,000 mls @ 75 mls/hr 08/16/23 12:30 08/17/23 04:54 Saline 0.9% IV 75 mls/hr .[id number] [facility] Administration Piperacillin Sod/Tazobactam 100 mls @ 25 mls/hr 08/16/23 20:00 08/17/23 04:54 Sod 3.375 gm/ Sodium Chloride IVPB 25 mls/hr Q8H [facility] Administration Protocol Metronidazole 500 mg/ IV 100 mls @ 100 mls/hr 08/17/23 10:15 Solution IVPB Q8HR [facility] Protocol Ibuprofen 400 mg 08/16/23 12:17 08/17/23 09:50 Ibuprofen 400 Mg Tab PO 400 mg Q6HR PRN Administration Mild Pain or Fever > 100.5 Ipratropium [place] 0.5 mg 08/17/23 08:00 08/17/23 08:12 Ipratropium 0.5 Mg/2.5 Ml Nebu INHALATION 0.5 mg RT-QID [facility] Administration Losartan Potassium 50 mg 08/17/23 09:00 08/17/23 09:51 Losartan 50 Mg Tab PO 50 mg DAILY [facility] Administration Metoprolol Succinate 100 mg 08/17/23 09:00 08/17/23 09:51 Metoprolol Succinate (Er) 100 Mg Tab.Er.24h PO 100 mg DAILY [facility] Administration Naloxone HCl 0.2 mg 08/16/23 12:17 Naloxone 0.4 Mg/Ml 1 Ml Vial IV Q2M PRN Opioid Reversal Nicotine 1 patch 08/16/23 20:30 08/17/23 09:51 Nicotine 21mg/24hr Patch TRANSDERM 1 patch DAILY [facility] Administration Non-Formulary Medication 1 film 08/16/23 22:00 08/17/23 09:44 Buprenorphine Hcl/Naloxone Hcl [Suboxone 4 Mg-1 Mg Sl Film] SUBLINGUAL Not Given BID [facility] Ondansetron HCl 4 mg 08/16/23 12:17 Ondansetron 4 Mg/2 Ml Vial IVP Q8HR PRN Nausea And Vomiting Pantoprazole Sodium 40 mg 08/17/23 09:00 08/17/23 09:51 Pantoprazole 40 Mg Tablet PO 40 mg DAILY [facility] Administration Intake and Output 08/16/23 08/17/23 08/17/23 22:59 06:59 14:59 Intake Total 1065 Balance 1065 Intake: Intake, IV Titration 1065 Amount Piperacillin-Tazobactam 3 200 .375 gm In Sodium Chloride 0.9% 100 ml @ 25 mls/hr IVPB Q8H [facility] Rx#: [id number] Sodium Chloride 0.9% 1, 865 000 ml @ 75 mls/hr IV . [id number] [facility] Rx#:[id number] Other: Voiding Method Toilet Urinal # Voids 3 Weight 81.647 kg 08/16/23 11:18 08/16/23 11:18
[2023-08-17] MEDS: HYDROcodone/APAP 5-325MG 1 EACH TAB PO PRN (14:12)
--- NOTE | 2023-08-17 14:49 | P.PN ---
Subjective Progress Note Date: 08/17/23 Principal diagnosis: Reason for follow-up is perforated diverticulitis with abscess Patient is a 58-year-old male with a past medical history significant for reflux hypertension previous history of hernia repair presented to hospital abdominal pain he has been diagnosed with perforated diverticulitis with peridiverticular abscess. On today's evaluation that is 08/17/2023,the patient remains to be afebrile, patient is on room air not requiring supplemental oxygen and denies any shortness of breath no chest pain or cough.Patient denies having any nausea or vomiting, abdominal pain has decreased in intensity and did have a bowel movement. Patient white count is down to 10.26 creatinine is normal urine is negative Objective - Vital Signs Vital signs: Vital Signs Temp 97.8 F 08/17/23 13:38 Pulse 75 08/17/23 13:38 Resp 24 08/17/23 13:38 BP 145/74 08/17/23 13:38 Pulse Ox 98 08/17/23 13:38 FiO2 Intake & Output 08/16/23 08/17/23 08/17/23 18:59 06:59 18:59 Intake Total 1065 Balance 1065 Weight 81.647 kg 81.647 kg Intake: Intake, IV Titration 1065 Amount Piperacillin-Tazobactam 3 200 .375 gm In Sodium Chloride 0.9% 100 ml @ 25 mls/hr IVPB Q8H [facility] Rx#: [id number] Sodium Chloride 0.9% 1, 865 000 ml @ 75 mls/hr IV . [id number] [facility] Rx#:[id number] Other: Voiding Method Toilet Urinal # Voids 3 - Exam GENERAL DESCRIPTION: Middle-age male lying in bed in no distress RESPIRATORY SYSTEM: Unlabored breathing , decreased breath sounds at bases HEART: S1 S2 regular rate and rhythm , ABDOMEN: Soft , no tenderness EXTREMITIES: No edema feet - Labs CBC & Chem 7: 08/17/23 06:48 08/16/23 11:18 Labs: Abnormal Lab Results - Last 24 Hours (Table) 08/17/23 Range/Units 06:48 WBC 10.26 H (4.50-10.00) X 10*3/uL MCHC 31.5 L (32.0-37.0) g/dL Immature Gran # 0.05 H (0.00-0.04) X 10*3/uL Assessment and Plan (1) Leukocytosis Current Visit: Yes Status: Acute Code(s): D72.829 - ELEVATED WHITE BLOOD CELL COUNT, UNSPECIFIED SNOMED Code(s): 581914235 (2) Diverticulitis of large intestine with abscess Current Visit: Yes Status: Acute Code(s): K57.20 - DVTRCLI OF LG INT W PERFORATION AND ABSCESS W/O BLEEDING SNOMED Code(s): 4589790173097 Plan: 1patient presented to hospital with abdominal pain nausea and constipation and this patient has been diagnosed with a acute complicated diverticulitis with perforation and abscess failing outpatient oral antibiotic therapy. 2unfortunately IR services not available cardiology has been consulted for clearance for possible proceeding with colectomy per surgery 3-we will continue the patient on Zosyn 3.375 g every 8 hours along with bowel rest, question concern answered Dictation was produced using [employer] dictation software. please excuse any grammatical, word or spelling errors. Time with Patient: Less than 30
[2023-08-17 15:29] VITALS: BMI 25.2
--- NOTE | 2023-08-17 17:41 | CA ---
Transthoracic Echo Report Name: Jimbo Mccullough Age: 58 Gender: M : 1965 Exam Date: 08/17/2023 16:06 Exam Location: [place] [facility] Ht (in): 68 Wt (lb): 180 Ordering Physician: Charline Eduardo Attending/Referring Phys: Machine Stonecutter Mariajose Jacobsen RDCS Procedure CPT: Indications: pre-op, check EF Cardiac Hx: Technical Quality: Fair Contrast 1: Total Dose (mL): Contrast 2: Total Dose (mL): MEASUREMENTS (Male / Female) Normal Values 2D ECHO LV Diastolic Diameter PLAX 4.2 cm 4.2 - 5.9 / 3.9 - 5.3 cm LV Systolic Diameter PLAX 3.3 cm IVS Diastolic Thickness 1.9 cm 0.6 - 1.0 / 0.6 - 0.9 cm LVPW Diastolic Thickness 1.7 cm 0.6 - 1.0 / 0.6 - 0.9 cm LV Relative Wall Thickness 0.9 RV Internal Dim ED PLAX 3.4 cm LA Volume 59.8 cm??? 18 - 58 / 22 - 52 cm??? LA Volume Index 30.0 cm???/m??? 16 - 28 cm???/m??? M-MODE Aortic Root Diameter MM 4.1 cm LA Systolic Diameter MM 3.2 cm LA Ao Ratio MM 0.8 AV Cusp Separation MM 2.5 cm DOPPLER AV Peak Velocity 130.4 cm/s AV Peak Gradient 6.8 mmHg AV Mean Velocity 85.2 cm/s AV Mean Gradient 3.3 mmHg AV Velocity Time Integral 23.3 cm LVOT Peak Velocity 121.2 cm/s LVOT Peak Gradient 5.9 mmHg LVOT Velocity Time Integral 22.9 cm MV Area PHT 2.8 cm??? Mitral E Point Velocity 61.7 cm/s Mitral A Point Velocity 89.7 cm/s Mitral E to A Ratio 0.7 MV Deceleration Time 269.6 ms MV E' Velocity 4.2 cm/s Mitral E to MV E' Ratio 14.8 TR Peak Velocity 175.8 cm/s TR Peak Gradient 12.4 mmHg Right Ventricular Systolic Press 17.4 mmHg FINDINGS Left Ventricle Severely increased left ventricular wall thickness. Left ventricular cavity size normal. Normal left ventricular systolic function with no obvious regional wall motion abnormalities. Left ventricular ejection fraction is estimated at 55-60 %. Grade 1 diastolic dysfunction. Right Ventricle Normal right ventricular size and function. Right ventricular systolic pressure within normal limits. Right Atrium Normal right atrial size. Left Atrium Mildly increased left atrial volume. Mitral Valve Structurally normal mitral valve. Moderate mitral annular calcification. Mild mitral regurgitation. Aortic Valve Trileaflet aortic valve. No aortic valve stenosis or regurgitation. Aortic valve sclerosis. Tricuspid Valve Structurally normal tricuspid valve. Mild tricuspid regurgitation. Pulmonic Valve Structurally normal pulmonic valve. Pericardium No pericardial effusion. Aorta Normal size aortic root and proximal ascending aorta. CONCLUSIONS LVH with preserved systolic function Previewed by: Dr. Christiano Mckinley MD (Electronically Signed) Final Date: 17 August 2023 17:40
--- NOTE | 2023-08-17 23:56 | P.PN ---
Subjective Progress Note Date: 08/17/23 Patient is a 58-year-old male with known history of hypertension, GERD and history of gastric ulcers as a kid, bipolar disorder and everyday smoker and prior history of umbilical hernia repair presents to ER with complaints of abdominal pain. Patient states that he has been having left lower quadrant abd ominal pain for the past 3 weeks. He has been issues with constipation. Denied any diarrhea or blood in the stool. Pain is mainly in the left side and suprapubic region. Patient states that he has pain with coughing and also sweating. Denied any fever. Occasional chills. Patient was sent by his primary care physician for outpatient CT of the abdomen and pelvis. CT of the abdomen pelvis was done at [facility] which showed acute sigmoid diverticulitis with a 4.6 cm abscess adjacent to the sigmoid colon. Denies any prior history of diverticulitis. Denied any dysuria or hematuria. No leg swelling. No complaints of chest pain or shortness of breath. Patient was transferred to [facility] for further evaluation. Laboratory data showed WBC 11.3 hemoglobin 14.8 and platelets 483 Sodium 140 potassium 4.2 chloride 106 bicarb is 28 BUN 10 and creatinine 0.73 and blood sugar 100 Urinalysis negative for infection. Liver enzymes are not elevated. 08/17/2023 Patient is sitting in the bed. Awake alert and oriented x 3. Denied any complaints of abdominal pain today. No nausea vomiting or diarrhea. No cough or sputum production. Patient has been afebrile Patient is being continued on antibiotics in the form of Zosyn. Interventional radiology was consulted for drainage of abscess. Laboratory data showed WBC 10.2 hemoglobin 13.5 and platelets 438 Current medications reviewed. Objective - Vital Signs Vital signs: Vital Signs Temp 98.1 F 08/17/23 07:09 Pulse 77 08/17/23 08:19 Resp 20 08/17/23 07:09 BP 154/99 08/17/23 07:09 Pulse Ox 96 08/17/23 07:09 FiO2 Intake & Output 08/16/23 08/17/23 08/17/23 18:59 06:59 18:59 Intake Total 1065 Balance 1065 Weight 81.647 kg 81.647 kg Intake: Intake, IV Titration 1065 Amount Piperacillin-Tazobactam 3 200 .375 gm In Sodium Chloride 0.9% 100 ml @ 25 mls/hr IVPB Q8H [facility] Rx#: [id number] Sodium Chloride 0.9% 1, 865 000 ml @ 75 mls/hr IV . [id number] [facility] Rx#:[id number] Other: Voiding Method Toilet Urinal # Voids 3 - Exam PHYSICAL EXAMINATION: Patient is lying in the bed comfortably, no acute distress, awake alert and oriented.. HEENT: Normocephalic. Neck is supple. Pupils reactive. Nostrils clear. Oral cavity is moist. Neck reveals no JVD, carotid bruits, or thyromegaly. CHEST EXAMINATION: Trachea is central. Symmetrical expansion. Lung wallaec clear to auscultation and percussion. CARDIAC: Normal S1, S2 with no gallops. No murmurs ABDOMEN: Soft. Bowel sounds normal. No organomegaly. No abdominal bruits. Extremities: reveal no edema. No clubbing or cyanosis Neurologically awake, alert, oriented x3 with well-coordinated movements. No focal deficits noted Skin: No rash or skin lesions. Psychiatric: Coperative. Nonsuicidal Musculoskeletal: No joint swelling or deformity. Normal range of motion. - Labs CBC & Chem 7: 08/17/23 06:48 08/16/23 11:18 Labs: Abnormal Lab Results - Last 24 Hours (Table) 08/16/23 08/16/23 08/16/23 Range/Units 11:18 11:18 12:36 WBC 11.3 H (3.8-10.6) k/uL Plt Count 483 H (150-450) k/uL Neutrophils # 8.2 H (1.3-7.7) k/uL Glucose 100 H (74-99) mg/dL Total Protein 6.1 L (6.3-8.2) g/dL Albumin 3.0 L (3.5-5.0) g/dL Urine Protein Trace H (Negative) Assessment and Plan Assessment: Acute sigmoid diverticulitis with 4.6 cm abscess adjacent to the sigmoid colon. Abdominal pain mainly left lower quadrant secondary to above Hypertension GERD History of gastric ulcer as a kid Bipolar disorder Current everyday smoker Occasional marijuana use Polysubstance use currently on Suboxone GERD DVT prophylaxis with heparin subcu Plan: Patient will be continued on IV hydration with normal saline. Continue with antibiotics in the form of Zosyn. Follow-up blood cultures. Interventional radiology was consulted for drainage of abscess but could not be done until Monday. Will be started on liquid diet once cleared by surgery. Continue home blood pressure medications and titrate dose as needed. Patient does take Suboxone at home. Continue with pain management. Follow-up closely Time with Patient: Greater than 30
[2023-08-18 10:26] LABS: Basophils # (A) 0.04 X 10*3/uL (0.00-0.10); Basophils % (A) 0.4 %; Eosinophils # (A) 0.27 X 10*3/uL (0.04-0.35); Eosinophils % (A) 2.9 %; HCT 40.5 % (39.6-50.0); HGB 13.2 g/dL (13.0-17.0); Lymphocytes # (A) 1.58 X 10*3/uL (0.90-5.00); Lymphocytes % (A) 17.2 %; MCH 28.1 pg (27.0-32.0); MCHC 32.6 g/dL (32.0-37.0); MCV 86.4 FL (80.0-97.0); Mean Platelet Volume 9.7 FL (9.5-12.2); Monocytes # (A) 0.83 X 10*3/uL (0.20-1.00); NRBC Per 100 WBC 0 X 10*3/uL (0.00-0.01); Neutrophils # (A) 6.42 X 10*3/uL (1.80-7.70); Neutrophils % (A) 70.1 %; Platelet Count 438 X 10*3/uL (140-440); RBC 4.69 X 10*6/uL (4.40-5.60); RDW 13.4 % (11.5-14.5); WBC 9.18 X 10*3/uL (4.50-10.00)
[2023-08-18] MEDS: IOPAMIDOL CONTRAST (ORAL USE) VIAL PO PRN (10:30)
[2023-08-18] MEDS: LIDOCAINE 2% (PF) 20 MG/ML 5 ML VIAL SQ ONE (11:27)
--- NOTE | 2023-08-18 11:40 | P.PN ---
Subjective HISTORY OF PRESENT ILLNESS: This is a 58-year-old male with a past medical history significant for hypertension, hyperlipidemia, nicotine dependence, and mitral regurgitation. Patient follows in the office with Dr. Barrow. We have been asked to see the patient in consultation for cardiac risk assessment. Patient examined at the bedside. Patient is admitted to the hospital secondary to sigmoid diverticulitis with abscess formation. Interventional radiology was consulted however there is no radiologist available for IR drainage until Monday. He is currently receiving IV antibiotics. General surgery is planning for possible colectomy. The patient denies any chest pain or pressure. He denies any shortness of breath. Blood pressure is on the higher side with a systolic between [id number]. DIAGNOSTICS: - EKG reveals sinus mechanism with no signs of acute ischemia - Laboratory data: WBC 11.3. Hemoglobin 14.8. Platelet count 483. Sodium 140. Potassium 4.2. BUN 10. Creatinine 0.73. Lactic acid 1.2. - Current home cardiac medications include losartan 50 mg daily, Lipitor 20 mg daily, Tricor 145 mg daily, metoprolol succinate 100 mg daily, amlodipine 10 mg daily. - Most recent echocardiogram obtained in July 2022 revealing normal EF, moderate LVH, mild to moderate MR - Cardiac catheterization history: November 2022 revealing normal coronary angiogram and low left-sided filling pressures. Medical management was recommended. 08/18/2023 Patient examined this morning at the bedside. Patient denies chest pain or pressure. He denies shortness of breath. Denies dizziness or lightheadedness. Vital signs are stable. Blood pressure has improved with increase in losartan. Echocardiogram completed revealing ejection fraction 55 to 60% with LVH, mild MR, mild TR PHYSICAL EXAM: VITAL SIGNS: Reviewed. GENERAL: Well-developed in no acute distress. HEENT: Head is normocephalic. Pupils are equal, round. Sclerae anicteric. Mucous membranes of the mouth are moist. Neck supple. No JVD or thyromegaly LUNGS: Respirations even and unlabored. Lungs essentially clear to auscultation bilaterally. HEART: Regular rate and rhythm. S1 and S2 heard. ABDOMEN: Soft. Nondistended. Nontender. EXTREMITIES: Normal range of motion. No clubbing or cyanosis. Peripheral pulses intact. No lower extremity edema NEUROLOGIC: Awake and alert. Oriented x 3. ASSESSMENT: Acute sigmoid diverticulitis with abscess Hypertension Hyperlipidemia Mild to moderate mitral regurgitation Normal coronary arteries, per cardiac catheterization 2022 Nicotine dependence Marijuana use Bipolar disorder PLAN: Continue current cardiac medications If surgical intervention is recommended, there are no absolute contraindications for patient to proceed from a cardiac standpoint We will sign off. Please reconsult if needed. Nurse practitioner note has been reviewed by physician. Signing provider agrees with the documented findings, assessment, and plan of care documented by FINANCIAL AID as a scribe. Objective - Vital Signs Vital signs: Vital Signs Temp 98.0 F 08/18/23 08:00 Pulse 73 08/18/23 08:54 Resp 16 08/18/23 08:00 BP 151/81 08/18/23 08:00 Pulse Ox 97 08/18/23 08:00 FiO2 Intake & Output 08/17/23 08/18/23 08/18/23 18:59 06:59 18:59 Intake Total 500 Balance 500 Weight 75.296 kg Intake: Intake, IV Titration 500 Amount Piperacillin-Tazobactam 3 100 .375 gm In Sodium Chloride 0.9% 100 ml @ 25 mls/hr IVPB Q8H [facility] Rx#: [id number] Sodium Chloride 0.9% 1, 300 000 ml @ 75 mls/hr IV . [id number] [facility] Rx#:[id number] metroNIDAZOLE-NS PMX 500 100 mg In Saline 1 100ml.bag @ 100 mls/hr IVPB Q8HR [facility] Rx#:[id number] Other: Voiding Method Toilet Urinal # Voids 3 - Labs CBC & Chem 7: 08/18/23 07:14 08/16/23 11:18 Labs: Microbiology - Last 24 Hours (Table) 08/16/23 11:02 Blood Culture - Preliminary Blood 08/16/23 11:18 Blood Culture - Preliminary Blood
--- NOTE | 2023-08-18 11:45 | P.OP ---
Date of Procedure: 08/18/23 Description of Procedure: Date of Procedure: Preoperative Diagnosis: Need for long-term IV antibiotic access. And peripheral nutrition Postoperative Diagnosis: Same. Procedure(s) Performed: Ultrasound-guided cannulation left brachial vein. Insertion of peripherally inserted central catheter under fluoroscopic guidance. Anesthesia: local (1% Xylocaine.) Surgeon: Brooke Estimated Blood Loss (ml): 5 IV fluids (ml): 0 Urine output (ml): 0 Pathology: none sent Condition: stable Disposition: no change Indications for Procedure: Patient is a 58-year-old male with perforated diverticulitis requiring nutrition and patient will require long-term IV antibiotics as an outpatient patient is offered a PICC line to allow for intravenous administration of antibiotics. Description of Procedure: Patient was brought to the special procedure suite. The left upper extremity sterilely prepped and draped in usual manner. Ultrasound was utilized to identify the brachial vein as the basilic nor cephalic vein were appropriate in size. The brachial vein was normally compressible free of visible thrombus. Per [facility] image was stored. 1% Xylocaine was utilized for local anesthesia tissues overlying the vein. Through this anesthetized area and with the aid of ultrasound a micropuncture needle was utilized to cannulate the vein. Once cannulated, Softip guidewire was advanced into the vein. The needle was withdrawn and a micropuncture sheath and dilator advanced over the guidewire. The guidewire was withdrawn and exchanged for the PICC guidewire and measured to the cavoatrial junction. The catheter was cut to size and advanced into the cavoatrial junction without resistance. The sheath was peeled away. Blood was easily withdrawn through the catheter and the catheter was then flushed with heparinized saline solution and secured to the skin. Patient tolerated procedure well and was returned to their room in satisfactory and stable condition.
--- NOTE | 2023-08-18 13:40 | CT ---
EXAMINATION TYPE: CT abdomen pelvis w con CT DLP: 923.5 mGycm, Automated exposure control for dose reduction was used. DATE OF EXAM: 08/18/2023 12:44 PM COMPARISON: CT abdomen pelvis most recent from CLINICAL INDICATION:Male, 58 years old with history of increase abdominal pain, diverticulitis; DIVER TICULITIS TECHNIQUE: Axial CT abdomen pelvis w con;Sagittal and coronal reformats were created on a separate w orkstation. Contrast used:100 mL of Isovue 300 with IV Contrast, (none if empty) Oral contrast used: with Oral Contrast (none if empty) FINDINGS: LOWER CHEST: Unremarkable ABDOMEN LIVER: Unremarkable GALLBLADDER AND BILE DUCTS: Unremarkable. PANCREAS: Unremarkable. SPLEEN: Unremarkable. ADRENAL GLANDS: Unremarkable. KIDNEYS AND URETERS: No evidence of hydronephrosis or renal calculus. The ureters are unremarkable. PELVIS BLADDER: Unremarkable REPRODUCTIVE: Unremarkable. ABDOMEN & PELVIS STOMACH AND BOWEL: Stomach and duodenum are unremarkable. Marked mural thickening in the sigmoid colo n with some inflammatory pericolonic fat stranding. No free air. No free fluid. Differential diagnost ic considerations would include diverticulitis and colon adenocarcinoma. Recommend treatment for dive rticulitis and repeat imaging in 3-6 months versus sigmoidoscopy in 3-6 months. . No evidence of bow el obstruction. PERITONEUM/RETROPERITONEUM: No evidence of pneumoperitoneum or free fluid. VASCULATURE: No evidence of aortic aneurysm. MUSCULOSKELETAL: No acute osseous abnormalities LYMPH NODES: No gross evidence for lymphadenopathy. SOFT TISSUE/ABDOMINAL WALL: Unremarkable IMPRESSION: 1. Abnormal appearance consisting mostly of mural thickening in the distal sigmoid colon. Differenti al diagnostic considerations might include diverticulitis, but also adenocarcinoma. Recommend follow- up
--- NOTE | 2023-08-18 15:25 | P.PN ---
Subjective Progress Note Date: 08/18/23 CHIEF COMPLAINT: Perforated diverticulitis HISTORY OF PRESENT ILLNESS: The patient is a 58-year-old male admitted as transfer from outside facility for perforated diverticulitis including abscess of the lower abdomen. Last night patient was started on clear liquid diet. Earlier today he reports increasing right-sided included suprapubic abdominal pain. Diet was held. No reports of fevers or chills. ROS: No reports of nausea and vomiting. No fevers or chills. No new chest pain. No productive sputum PHYSICAL EXAM: VITAL SIGNS: Reviewed CONSTITUTIONAL: Well developed and in no acute distress. EYES: Conjuctivae without sclera icterus. Extraocular movements grossly intact. HEAD, EARS, NOSE, THROAT: Moist buccal mucosa. Head is atraumatic, normocephalic. Hears conversational speech. No nasal drainage. RESPIRATORY: Non-labored respirations and equal bilateral excursions. CARDIOVASCULAR: Palpable 2+ radial pulses. ABDOMEN: No peritonitis. Mild tenderness suprapubic and left lower quadrant. MUSCULOSKELETAL: No gross deformity of the lower extremities noted. No clubbing. No cyanosis. SKIN: Good skin turgor. Well perfused. NEUROLOGIC: Cranial nerves II through XII grossly intact. No focal or lateralizing signs. PSYCH: Appropriate affect. Alert and oriented to person, place and time. CLINICAL LABS: Reviewed. WBC normal down from 11,000 on admission. STUDIES: CT of the abdomen pelvis independently reviewed by me demonstrates abscess pocket of the pelvis. No diffuse free air or pneumoperitoneum. This is my independent interpretation. ASSESSMENT: 1. Perforated diverticulitis complicated with abscess sigmoid colon 2. Hypertensive heart disease 3. Hyperlipidemia PLAN: 1. Due to his increased abdominal pain, CT of the abdomen pelvis was ordered by me. Clinically, diet downgraded from liquid diet to n.p.o. except ice chips and popsicles for his abdominal pain. 2. Continue antibiotic management. 3. Patient advised that symptomatic relief is usually 3 days of requiring intense antibiotic therapy for which today he is day 2. 4. PICC line ordered for prolonged n.p.o. status, TPN, including IV antibiotic management anticipated upon discharge due to complicated perforated diverticulitis. 5. Patient is scheduled for interventional radiology drainage of suspected abscess August 21 Objective - Vital Signs Vital signs: Vital Signs Temp 98.3 F 08/18/23 13:12 Pulse 79 08/18/23 15:06 Resp 18 08/18/23 15:06 BP 130/78 08/18/23 15:06 Pulse Ox 97 08/18/23 15:06 FiO2 Intake & Output 08/17/23 08/18/23 08/18/23 18:59 06:59 18:59 Intake Total 500 Balance 500 Weight 75.296 kg Intake: Intake, IV Titration 500 Amount Piperacillin-Tazobactam 3 100 .375 gm In Sodium Chloride 0.9% 100 ml @ 25 mls/hr IVPB Q8H [facility] Rx#: [id number] Sodium Chloride 0.9% 1, 300 000 ml @ 75 mls/hr IV . [id number] [facility] Rx#:[id number] metroNIDAZOLE-NS PMX 500 100 mg In Saline 1 100ml.bag @ 100 mls/hr IVPB Q8HR [facility] Rx#:[id number] Other: Voiding Method Toilet Urinal # Voids 3 - Labs CBC & Chem 7: 08/18/23 07:14 08/16/23 11:18 Labs: Microbiology - Last 24 Hours (Table) 08/16/23 11:02 Blood Culture - Preliminary Blood 08/16/23 11:18 Blood Culture - Preliminary Blood
[2023-08-18 16:17] LABS: ALT 22 U/L (4-49); AST 26 U/L (17-59); African American GFR (CKD) >90 (>60 ml/min/1.73 sqM); Albumin/Globulin Ratio 1.1; Alkaline Phosphatase 83 U/L (38-126); Anion Gap 5 mmol/L; Blood Urea Nitrogen 6 mg/dL (9-20); Calcium 8.7 mg/dL (8.4-10.2); Carbon Dioxide 25 mmol/L (22-30); Chloride 107 mmol/L (98-107); Globulin 2.8 g/dL; Glucose 82 mg/dL (74-99); Magnesium 1.7 mg/dL (1.6-2.3); Non-African American GFR(CKD) >90 (>60 ml/min/1.73 sqM); Phosphorus 3.1 mg/dL (2.5-4.5); Potassium 4.2 mmol/L (3.5-5.1); Sodium 137 mmol/L (137-145); Total Bilirubin 0.4 mg/dL (0.2-1.3); Total Protein 5.8 g/dL (6.3-8.2)
--- NOTE | 2023-08-18 17:14 | P.PN ---
Subjective Progress Note Date: 08/18/23 58-year-old male with known history of hypertension, GERD and history of gastric ulcers as a kid, bipolar disorder and everyday smoker and prior history of umbilical hernia repair presents to ER with complaints of abdominal pain. Patient states that he has been having left lower quadrant abdominal pain for the past 3 weeks. He has been issues with constipation. Denied any diarrhea or blood in the stool. Pain is mainly in the left side and suprapubic region. Patient states that he has pain with coughing and also sweating. Denied any fever. Occasional chills. Patient was sent by his primary care physician for outpatient CT of the abdomen and pelvis. CT of the abdomen pelvis was done at [facility] which showed acute sigmoid diverticulitis with a 4.6 cm abscess adjacent to the sigmoid colon. Denies any prior history of diverticulitis. Denied any dysuria or hematuria. No leg swelling. No complaints of chest pain or shortness of breath. Patient was transferred to [facility] for further evaluation. Laboratory data showed WBC 11.3 hemoglobin 14.8 and platelets 483 Sodium 140 potassium 4.2 chloride 106 bicarb is 28 BUN 10 and creatinine 0.73 and blood sugar 100 Urinalysis negative for infection. Liver enzymes are not elevated. Objective - Vital Signs Vital signs: Vital Signs Temp 98.0 F 08/18/23 08:00 Pulse 69 08/18/23 12:18 Resp 18 08/18/23 12:18 BP 142/92 08/18/23 12:18 Pulse Ox 94 L 08/18/23 12:18 FiO2 Intake & Output 08/17/23 08/18/23 08/18/23 18:59 06:59 18:59 Intake Total 500 Balance 500 Weight 75.296 kg Intake: Intake, IV Titration 500 Amount Piperacillin-Tazobactam 3 100 .375 gm In Sodium Chloride 0.9% 100 ml @ 25 mls/hr IVPB Q8H [facility] Rx#: [id number] Sodium Chloride 0.9% 1, 300 000 ml @ 75 mls/hr IV . [id number] [facility] Rx#:[id number] metroNIDAZOLE-NS PMX 500 100 mg In Saline 1 100ml.bag @ 100 mls/hr IVPB Q8HR [facility] Rx#:[id number] Other: Voiding Method Toilet Urinal # Voids 3 - Exam Patient is lying in the bed comfortably, no acute distress, awake alert and oriented.. HEENT: Normocephalic. Neck is supple. Pupils reactive. Nostrils clear. Oral cavity is moist. Neck reveals no JVD, carotid bruits, or thyromegaly. CHEST EXAMINATION: Trachea is central. Symmetrical expansion. Lung wallace clear to auscultation and percussion. CARDIAC: Normal S1, S2 with no gallops. No murmurs ABDOMEN: Soft. Bowel sounds present, mild left lower quadrant tenderness. No guarding or rigidity. No organomegaly. No abdominal bruits. Extremities: reveal no edema. No clubbing or cyanosis Neurologically awake, alert, oriented x3 with well-coordinated movements. No focal deficits noted Skin: No rash or skin lesions. Psychiatric: Coperative. Nonsuicidal Musculoskeletal: No joint swelling or deformity. Normal range of motion. - Labs CBC & Chem 7: 08/18/23 07:14 08/18/23 15:17 Labs: Microbiology - Last 24 Hours (Table) 08/16/23 11:02 Blood Culture - Preliminary Blood 08/16/23 11:18 Blood Culture - Preliminary Blood Assessment and Plan Assessment: Acute sigmoid diverticulitis with 4.6 cm abscess adjacent to the sigmoid colon. Abdominal pain mainly left lower quadrant secondary to above Hypertension GERD History of gastric ulcer as a kid Bipolar disorder Current everyday smoker Occasional marijuana use Polysubstance use currently on Suboxone GERD DVT prophylaxis with heparin subcu Plan: Patient will be continued on IV hydration with normal saline. Continue NPO. Continue with antibiotics in the form of Zosyn. Follow-up blood cultures. Patient will be continued on pain management and follow-up closely. General surgery was consulted for evaluation. Continue home blood pressure medications and titrate dose as needed. Follow-up closely. Current with other home medications including Suboxone.
[2023-08-18] MEDS: MVI, ADULT NO.4 WITH VIT K 10 ML, TRACE (CONC-1ML/DOSE) 1 ML in AMINO ACID 5%-D20W+LYTE... IV SCH (18:15)
[2023-08-19 05:14] LABS: Ionized Calcium 5.1 mg/dL (4.5-5.3)
[2023-08-19 05:28] LABS: Magnesium 1.9 mg/dL (1.6-2.3); Phosphorus 3.2 mg/dL (2.5-4.5)
[2023-08-19 09:25] LABS: BUN/Creat Ratio 5.56 Ratio (12.00-20.00); Basophils # (A) 0.04 X 10*3/uL (0.00-0.10); Basophils % (A) 0.6 %; Calcium 8.6 mg/dL (8.7-10.3); Carbon Dioxide 24.5 mmol/L (21.6-31.8); Chloride 108 mmol/L (96-109); Eosinophils # (A) 0.28 X 10*3/uL (0.04-0.35); Eosinophils % (A) 4.1 %; Glucose 106 mg/dL (70-110); HCT 43.9 % (39.6-50.0); HGB 14.1 g/dL (13.0-17.0); Lymphocytes # (A) 1.37 X 10*3/uL (0.90-5.00); Lymphocytes % (A) 19.9 %; MCH 28.3 pg (27.0-32.0); MCHC 32.1 g/dL (32.0-37.0); MCV 88.2 FL (80.0-97.0); Mean Platelet Volume 9.8 FL (9.5-12.2); Monocytes # (A) 0.64 X 10*3/uL (0.20-1.00); Monocytes % (A) 9.3 %; NRBC Per 100 WBC 0 X 10*3/uL (0.00-0.01); Neutrophils # (A) 4.55 X 10*3/uL (1.80-7.70); Neutrophils % (A) 65.8 %; Platelet Count 442 X 10*3/uL (140-440); Potassium 4.4 mmol/L (3.5-5.5); RBC 4.98 X 10*6/uL (4.40-5.60); RDW 13.7 % (11.5-14.5); Sodium 140 mmol/L (135-145)
--- NOTE | 2023-08-19 11:48 | P.PN ---
Subjective Progress Note Date: 08/18/23 Principal diagnosis: Reason for follow-up is perforated diverticulitis with abscess Patient is a 58-year-old male with a past medical history significant for reflux hypertension previous history of hernia repair presented to hospital abdominal pain he has been diagnosed with perforated diverticulitis with peridiverticular abscess. On today's evaluation that is 08/18/2023, the patient continues to be afebrile, the patient is on room air and breathing comfortably, the Pt denies having any chest pain or cough, the patient still complains of some lower abdominal pain but no nausea vomiting no diarrhea. Patient did have a white count 9.18, creatinine 0.77 Objective - Vital Signs Vital signs: Vital Signs Temp 97.9 F 08/18/23 19:43 Pulse 70 08/18/23 19:43 Resp 16 08/18/23 19:43 BP 134/82 08/18/23 19:43 Pulse Ox 96 08/18/23 19:43 FiO2 Intake & Output 08/18/23 08/18/23 08/19/23 06:59 18:59 06:59 Intake Total 950 Balance 950 Weight 75.296 kg Intake: Intake, IV Titration 950 Amount Piperacillin-Tazobactam 3 100 .375 gm In Sodium Chloride 0.9% 100 ml @ 25 mls/hr IVPB Q8H [facility] Rx#: [id number] Sodium Chloride 0.9% 1, 750 000 ml @ 75 mls/hr IV . [id number] [facility] Rx#:[id number] metroNIDAZOLE-NS PMX 500 100 mg In Saline 1 100ml.bag @ 100 mls/hr IVPB Q8HR [facility] Rx#:[id number] Other: Voiding Method Toilet Urinal # Voids 3 - Exam GENERAL DESCRIPTION: Middle-age male lying in bed in no distress RESPIRATORY SYSTEM: Unlabored breathing , decreased breath sounds at bases HEART: S1 S2 regular rate and rhythm , ABDOMEN: Soft , no tenderness EXTREMITIES: No edema feet - Labs CBC & Chem 7: 08/19/23 04:01 08/19/23 04:01 Labs: Abnormal Lab Results - Last 24 Hours (Table) 08/18/23 Range/Units 15:17 BUN 6 L (9-20) mg/dL Total Protein 5.8 L (6.3-8.2) g/dL Albumin 3.0 L (3.5-5.0) g/dL Microbiology - Last 24 Hours (Table) 08/16/23 11:02 Blood Culture - Preliminary Blood 08/16/23 11:18 Blood Culture - Preliminary Blood Assessment and Plan (1) Leukocytosis Current Visit: Yes Status: Acute Code(s): D72.829 - ELEVATED WHITE BLOOD CELL COUNT, UNSPECIFIED SNOMED Code(s): 451581798 (2) Diverticulitis of large intestine with abscess Current Visit: Yes Status: Acute Code(s): K57.20 - DVTRCLI OF LG INT W PERFORATION AND ABSCESS W/O BLEEDING SNOMED Code(s): 7583675575572 Plan: 1patient presented to hospital with abdominal pain nausea and constipation and this patient has been diagnosed with a acute complicated diverticulitis with perforation and abscess failing outpatient oral antibiotic therapy. 2patient did have a repeat CT abdominal pelvis completed on 08/18/2023 did not mention any abscess possible diverticulitis 3-we will continue the patient on Zosyn 3.375 g every 8 hours along with bowel rest, and monitor clinical course closely Dictation was produced using [email or web address] dictation software. please excuse any grammatical, word or spelling errors. Time with Patient: Less than 30
--- NOTE | 2023-08-19 14:54 | P.PN ---
Subjective Progress Note Date: 08/19/23 CHIEF COMPLAINT: Perforated diverticulitis HISTORY OF PRESENT ILLNESS: The patient is a 58-year-old male admitted as transfer from outside facility for perforated diverticulitis including abscess of the lower abdomen. He reports improvement of his abdominal pain. "I am starving." CT of the abdomen pelvis obtained yesterday for abdominal pain. ROS: No reports of nausea and vomiting. No fevers or chills. No new chest pain. No productive sputum PHYSICAL EXAM: VITAL SIGNS: Reviewed CONSTITUTIONAL: Well developed and in no acute distress. EYES: Conjuctivae without sclera icterus. Extraocular movements grossly intact. HEAD, EARS, NOSE, THROAT: Moist buccal mucosa. Head is atraumatic, nor mocephalic. Hears conversational speech. No nasal drainage. RESPIRATORY: Non-labored respirations and equal bilateral excursions. CARDIOVASCULAR: Palpable 2+ radial pulses. ABDOMEN: No peritonitis. Mild tenderness suprapubic and left lower quadrant. MUSCULOSKELETAL: No gross deformity of the lower extremities noted. No clubbing. No cyanosis. SKIN: Good skin turgor. Well perfused. NEUROLOGIC: Cranial nerves II through XII grossly intact. No focal or lateralizing signs. PSYCH: Appropriate affect. Alert and oriented to person, place and time. CLINICAL LABS: Reviewed. WBC normal under 7000. Platelets elevated over 450,000, thrombocytosis ASSESSMENT: 1. Perforated diverticulitis complicated with abscess sigmoid colon 2. Hypertensive heart disease 3. Hyperlipidemia PLAN: 1. This is day 3 of his IV antibiotics and n.p.o. status. Will do trial of liquid diet. He is on TPN for nutritional support 2. Patient advised that any clinical decline in his status may warrant emergency procedure. Objective - Vital Signs Vital signs: Vital Signs Temp 97.8 F 08/19/23 14:41 Pulse 54 L 08/19/23 14:41 Resp 17 08/19/23 14:41 BP 107/67 08/19/23 14:41 Pulse Ox 92 L 08/19/23 14:41 FiO2 Intake & Output 08/18/23 08/19/23 08/19/23 18:59 06:59 18:59 Intake Total 950 Balance 950 Weight 75.296 kg Intake: Intake, IV Titration 950 Amount Piperacillin-Tazobactam 3 100 .375 gm In Sodium Chloride 0.9% 100 ml @ 25 mls/hr IVPB Q8H [facility] Rx#: [id number] Sodium Chloride 0.9% 1, 750 000 ml @ 75 mls/hr IV . [id number] [facility] Rx#:[id number] metroNIDAZOLE-NS PMX 500 100 mg In Saline 1 100ml.bag @ 100 mls/hr IVPB Q8HR [facility] Rx#:[id number] Other: Voiding Method Toilet Toilet # Voids 3 - Labs CBC & Chem 7: 08/19/23 04:01 08/19/23 04:01 Labs: Abnormal Lab Results - Last 24 Hours (Table) 08/18/23 08/19/23 08/19/23 Range/Units 15:17 04:01 04:01 Plt Count 442 H (140-440) X 10*3/uL BUN 6 L 5.0 L (9-20) mg/dL BUN/Creatinine Ratio 5.56 L (12.00-20.00) Ratio Calcium 8.6 L (8.7-10.3) mg/dL Total Protein 5.8 L (6.3-8.2) g/dL Albumin 3.0 L (3.5-5.0) g/dL Microbiology - Last 24 Hours (Table) 08/16/23 11:02 Blood Culture - Preliminary Blood 08/16/23 11:18 Blood Culture - Preliminary Blood
--- NOTE | 2023-08-19 16:03 | P.PN ---
Subjective Progress Note Date: 08/19/23 58-year-old male with known history of hypertension, GERD and history of gastric ulcers as a kid, bipolar disorder and everyday smoker and prior history of umbilical hernia repair presents to ER with complaints of abdominal pain. Patient states that he has been having left lower quadrant abdominal pain for the past 3 weeks. He has been issues with constipation. Denied any diarrhea or blood in the stool. Pain is mainly in the left side and suprapubic region. Patient states that he has pain with coughing and also sweating. Denied any fever. Occasional chills. Patient was sent by his primary care physician for outpatient CT of the abdomen and pelvis. CT of the abdomen pelvis was done at [facility] which showed acute sigmoid diverticulitis with a 4.6 cm abscess adjacent to the sigmoid colon. Denies any prior history of diverticulitis. Denied any dysuria or hematuria. No leg swelling. No complaints of chest pain or shortness of breath. Patient was transferred to [facility] for further evaluation. Laboratory data showed WBC 11.3 hemoglobin 14.8 and platelets 483 Sodium 140 potassium 4.2 chloride 106 bicarb is 28 BUN 10 and creatinine 0.73 and blood sugar 100 Urinalysis negative for infection. Liver enzymes are not elevated. 24-hour interval change 08/19/2023 Patient is seen and evaluated in room at bedside; denies any specific complaints Vital signs reviewed; patient remains afebrile Lab review shows WBC of 6.9, hemoglobin of 14 and platelet count of 442, sodium 140, potassium 4.4, BUNs/creatinine of 5.2/0.9 patient presented to hospital with abdominal pain nausea and constipation and this patient has been diagnosed with a acute complicated diverticulitis with perforation and abscess failing outpatient oral antibiotic therapy. patient did have a repeat CT abdominal pelvis completed on 08/18/2023 did not mention any abscess possible diverticulitis -we will continue the patient on Zosyn 3.375 g every 8 hours along with bowel rest, and monitor clinical course closely Objective - Vital Signs Vital signs: Vital Signs Temp 97.8 F 08/19/23 07:46 Pulse 74 08/19/23 08:24 Resp 17 08/19/23 07:46 BP 139/81 08/19/23 07:46 Pulse Ox 95 08/19/23 07:46 FiO2 Intake & Output 0408/19/23 08/19/23 18:59 06:59 18:59 Intake Total 950 Balance 950 Weight 75.296 kg Intake: Intake, IV Titration 950 Amount Piperacillin-Tazobactam 3 100 .375 gm In Sodium Chloride 0.9% 100 ml @ 25 mls/hr IVPB Q8H [facility] Rx#: [id number] Sodium Chloride 0.9% 1, 750 000 ml @ 75 mls/hr IV . [id number] [facility] Rx#:[id number] metroNIDAZOLE-NS PMX 500 100 mg In Saline 1 100ml.bag @ 100 mls/hr IVPB Q8HR [facility] Rx#:[id number] Other: Voiding Method Toilet # Voids 3 - Exam Patient is lying in the bed comfortably, no acute distress, awake alert and oriented.. HEENT: Normocephalic. Neck is supple. Pupils reactive. Nostrils clear. Oral cavity is moist. Neck reveals no JVD, carotid bruits, or thyromegaly. CHEST EXAMINATION: Trachea is central. Symmetrical expansion. Lung wallace clear to auscultation and percussion. CARDIAC: Normal S1, S2 with no gallops. No murmurs ABDOMEN: Soft. Bowel sounds present, mild left lower quadrant tenderness. No guarding or rigidity. No organomegaly. No abdominal bruits. Extremities: reveal no edema. No clubbing or cyanosis Neurologically awake, alert, oriented x3 with well-coordinated movements. No focal deficits noted Skin: No rash or skin lesions. Psychiatric: Coperative. Nonsuicidal Musculoskeletal: No joint swelling or deformity. Normal range of motion. - Labs CBC & Chem 7: 08/19/23 04:01 08/19/23 04:01 Labs: Abnormal Lab Results - Last 24 Hours (Table) 08/18/23 08/19/23 08/19/23 Range/Units 15:17 04:01 04:01 Plt Count 442 H (140-440) X 10*3/uL BUN 6 L 5.0 L (9-20) mg/dL BUN/Creatinine Ratio 5.56 L (12.00-20.00) Ratio Calcium 8.6 L (8.7-10.3) mg/dL Total Protein 5.8 L (6.3-8.2) g/dL Albumin 3.0 L (3.5-5.0) g/dL Microbiology - Last 24 Hours (Table) 08/16/23 11:02 Blood Culture - Preliminary Blood 08/16/23 11:18 Blood Culture - Preliminary Blood Assessment and Plan Assessment: Acute sigmoid diverticulitis with 4.6 cm abscess adjacent to the sigmoid colon. Abdominal pain mainly left lower quadrant secondary to above Hypertension GERD History of gastric ulcer as a kid Bipolar disorder Current everyday smoker Occasional marijuana use Polysubstance use currently on Suboxone GERD DVT prophylaxis with heparin subcu Plan: Patient will be continued on IV hydration with normal saline. Continue NPO. Continue with antibiotics in the form of Zosyn. Follow-up blood cultures. Patient will be continued on pain management and follow-up closely. General surgery was consulted for evaluation. Continue home blood pressure medications and titrate dose as needed. Follow-up closely. Current with other home medications including Suboxone.
[2023-08-19] MEDS: KETOROLAC 15 MG/ML 1 ML VIAL IVP SCH (16:18)
[2023-08-19] MEDS: ACETAMINOPHEN TAB 500 MG TAB PO SCH (16:19)
[2023-08-19] MEDS: FAT EMULSION 20% 250 ML in EMPTY BAG 1 BAG IV SCH (16:26)
[2023-08-19] MEDS: 1: MVI, ADULT NO.4 WITH VIT K 10 ML, TRACE (CONC-1ML/DOSE) 1 ML in AMINO ACID 5%-D20W+LY IV SCH (21:39)
[2023-08-20 09:54] LABS: Basophils # (A) 0.05 X 10*3/uL (0.00-0.10); Basophils % (A) 0.8 %; Eosinophils # (A) 0.32 X 10*3/uL (0.04-0.35); Eosinophils % (A) 5.3 %; HCT 40.5 % (39.6-50.0); Lymphocytes # (A) 1.68 X 10*3/uL (0.90-5.00); Lymphocytes % (A) 27.9 %; MCH 27.8 pg (27.0-32.0); MCHC 32.1 g/dL (32.0-37.0); MCV 86.5 FL (80.0-97.0); Mean Platelet Volume 9.7 FL (9.5-12.2); Monocytes # (A) 0.64 X 10*3/uL (0.20-1.00); Monocytes % (A) 10.6 %; NRBC Per 100 WBC 0 X 10*3/uL (0.00-0.01); Neutrophils # (A) 3.31 X 10*3/uL (1.80-7.70); Neutrophils % (A) 54.9 %; Platelet Count 394 X 10*3/uL (140-440); RBC 4.68 X 10*6/uL (4.40-5.60); RDW 13.8 % (11.5-14.5); WBC 6.03 X 10*3/uL (4.50-10.00)
[2023-08-20 09:57] LABS: BUN/Creat Ratio 7.25 Ratio (12.00-20.00); Blood Urea Nitrogen 5.8 mg/dL (9.0-27.0); Calcium 8.2 mg/dL (8.7-10.3); Carbon Dioxide 22.1 mmol/L (21.6-31.8); Chloride 111 mmol/L (96-109); Glucose 125 mg/dL (70-110); Magnesium 1.9 mg/dL (1.5-2.4); Phosphorus 2.5 mg/dL (2.4-5.1); Potassium 4.1 mmol/L (3.5-5.5); Sodium 142 mmol/L (135-145)
--- NOTE | 2023-08-20 13:13 | P.PN ---
Subjective Progress Note Date: 08/20/23 patient appears to be resting comfortably in his bed. He denies any significant abdominal pain. Apparently he is waiting evaluation by PT for help with ambulation. On exam vital signs are stable. Abdomen soft. Resolving peritonitis. Patient will be discharged home per the medical service. Objective - Vital Signs Vital signs: Vital Signs Temp 97.6 F 08/20/23 12:41 Pulse 57 L 08/20/23 12:41 Resp 18 08/20/23 12:41 BP 152/81 08/20/23 12:41 Pulse Ox 98 08/20/23 12:41 FiO2 Intake & Output 08/19/23 08/20/23 08/20/23 18:59 06:59 18:59 Intake Total 950 1251 Balance 950 1251 Intake: Intake, IV Titration 1011 Amount Mvi, Adult No.4 with Vit 1011 K 10 ml Trace (Conc-1Ml/ Dose) 1 ml In Amino Acid 5%-D20w+Lytes*E* 1,000 ml @ 95 mls/hr IV .[facility] Rx#: [id number] Oral 950 240 Other: Voiding Method Toilet Toilet Toilet # Voids 3 2 2 # Bowel Movements 1 - Labs CBC & Chem 7: 08/20/23 04:17 08/20/23 04:17 Labs: Abnormal Lab Results - Last 24 Hours (Table) 08/20/23 Range/Units 04:17 Chloride 111 H (96-109) mmol/L BUN 5.8 L (9.0-27.0) mg/dL BUN/Creatinine Ratio 7.25 L (12.00-20.00) Ratio Glucose 125 H (70-110) mg/dL Calcium 8.2 L (8.7-10.3) mg/dL Microbiology - Last 24 Hours (Table) 08/16/23 11:02 Blood Culture - Preliminary Blood 08/16/23 11:18 Blood Culture - Preliminary Blood
--- NOTE | 2023-08-20 14:28 | P.PN ---
Subjective Progress Note Date: 08/20/23 58-year-old male with known history of hypertension, GERD and history of gastric ulcers as a kid, bipolar disorder and everyday smoker and prior history of umbilical hernia repair presents to ER with complaints of abdominal pain. Patient states that he has been having left lower quadrant abdominal pain for the past 3 weeks. He has been issues with constipation. Denied any diarrhea or blood in the stool. Pain is mainly in the left side and suprapubic region. Patient states that he has pain with coughing and also sweating. Denied any fever. Occasional chills. Patient was sent by his primary care physician for outpatient CT of the abdomen and pelvis. CT of the abdomen pelvis was done at [facility] which showed acute sigmoid diverticulitis with a 4.6 cm abscess adjacent to the sigmoid colon. Denies any prior history of diverticulitis. Denied any dysuria or hematuria. No leg swelling. No complaints of chest pain or shortness of breath. Patient was transferred to [facility] for further evaluation. Laboratory data showed WBC 11.3 hemoglobin 14.8 and platelets 483 Sodium 140 potassium 4.2 chloride 106 bicarb is 28 BUN 10 and creatinine 0.73 and blood sugar 100 Urinalysis negative for infection. Liver enzymes are not elevated. 24-hour interval change 08/19/2023 Patient is seen and evaluated in room at bedside; denies any specific complaints Vital signs reviewed; patient remains afebrile Lab review shows WBC of 6.9, hemoglobin of 14 and platelet count of 442, sodium 140, potassium 4.4, BUNs/creatinine of 5.2/0.9 patient presented to hospital with abdominal pain nausea and constipation and this patient has been diagnosed with a acute complicated diverticulitis with perforation and abscess failing outpatient oral antibiotic therapy. patient did have a repeat CT abdominal pelvis completed on 08/18/2023 did not mention any abscess possible diverticulitis -we will continue the patient on Zosyn 3.375 g every 8 hours along with bowel rest, and monitor clinical course closely 24-hour interval change 08/20/2023 Patient is seen and evaluated sitting up in bedside chair; continues to report uncontrolled back and shoulder pain; no complaint of worsening abdominal pain Vital signs are reviewed and stable with temperature of 97.6, pulse 57, respiration 18 and blood pressure of 152/81 Lab review shows WBC of 6.03, hemoglobin of 13 and platelet count of 394, sodium 142, potassium 4.1, BUNs/creatinine of 5.8/0.8 --Patient remains on IV antibiotics; TPN has been initiated; general surgery on board Continue with IV Zosyn at this time Objective - Vital Signs Vital signs: Vital Signs Temp 97.6 F 08/20/23 07:52 Pulse 74 08/20/23 08:14 Resp 19 08/20/23 07:52 BP 136/86 08/20/23 07:52 Pulse Ox 96 08/20/23 07:52 FiO2 Intake & Output 08/19/23 08/20/23 08/20/23 18:59 06:59 18:59 Intake Total 950 1251 Balance 950 1251 Intake: Intake, IV Titration 1011 Amount Mvi, Adult No.4 with Vit 1011 K 10 ml Trace (Conc-1Ml/ Dose) 1 ml In Amino Acid 5%-D20w+Lytes*E* 1,000 ml @ 95 mls/hr IV .BY DURATION [facility] Rx#: [id number] Oral 950 240 Other: Voiding Method Toilet Toilet # Voids 3 2 - Exam Patient is lying in the bed comfortably, no acute distress, awake alert and oriented.. HEENT: Normocephalic. Neck is supple. Pupils reactive. Nostrils clear. Oral cavity is moist. Neck reveals no JVD, carotid bruits, or thyromegaly. CHEST EXAMINATION: Trachea is central. Symmetrical expansion. Lung wallace clear to auscultation and percussion. CARDIAC: Normal S1, S2 with no gallops. No murmurs ABDOMEN: Soft. Bowel sounds present, mild left lower quadrant tenderness. No guarding or rigidity. No organomegaly. No abdominal bruits. Extremities: reveal no edema. No clubbing or cyanosis Neurologically awake, alert, oriented x3 with well-coordinated movements. No focal deficits noted Skin: No rash or skin lesions. Psychiatric: Coperative. Nonsuicidal Musculoskeletal: No joint swelling or deformity. Normal range of motion. - Labs CBC & Chem 7: 08/20/23 04:17 08/20/23 04:17 Labs: Abnormal Lab Results - Last 24 Hours (Table) 08/20/23 Range/Units 04:17 Chloride 111 H (96-109) mmol/L BUN 5.8 L (9.0-27.0) mg/dL BUN/Creatinine Ratio 7.25 L (12.00-20.00) Ratio Glucose 125 H (70-110) mg/dL Calcium 8.2 L (8.7-10.3) mg/dL Microbiology - Last 24 Hours (Table) 08/16/23 11:02 Blood Culture - Preliminary Blood 08/16/23 11:18 Blood Culture - Preliminary Blood Assessment and Plan Assessment: Acute sigmoid diverticulitis with 4.6 cm abscess adjacent to the sigmoid colon. Abdominal pain mainly left lower quadrant secondary to above Hypertension GERD History of gastric ulcer as a kid Bipolar disorder Current everyday smoker Occasional marijuana use Polysubstance use currently on Suboxone GERD DVT prophylaxis with heparin subcu Plan: Patient will be continued on IV hydration with normal saline. Continue NPO. Continue with antibiotics in the form of Zosyn. Follow-up blood cultures. Patient will be continued on pain management and follow-up closely. General surgery was consulted for evaluation. Continue home blood pressure medications and titrate dose as needed. Follow-up closely. Current with other home medications including Suboxone.
--- NOTE | 2023-08-20 16:31 | P.PN ---
Subjective Progress Note Date: 08/19/23 Principal diagnosis: Reason for follow-up is perforated diverticulitis with abscess Patient is a 58-year-old male with a past medical history significant for reflux hypertension previous history of hernia repair presented to hospital abdominal pain he has been diagnosed with perforated diverticulitis with peridiverticular abscess. On today's evaluation that is 08/19/2023, Patient is afebrile patient is currently on room air and denies having any shortness of breath, the patient denies any chest pain or cough, the patient denies any nausea vomiting abdominal pain has decreased in intensity feeling better Patient white count is 6.90, creatinine 0.9 Objective - Vital Signs Vital signs: Vital Signs Temp 97.8 F 08/19/23 07:46 Pulse 74 08/19/23 08:24 Resp 17 08/19/23 07:46 BP 139/81 08/19/23 07:46 Pulse Ox 95 08/19/23 07:46 FiO2 Intake & Output 08/18/23 08/19/23 08/19/23 18:59 06:59 18:59 Intake Total 950 Balance 950 Weight 75.296 kg Intake: Intake, IV Titration 950 Amount Piperacillin-Tazobactam 3 100 .375 gm In Sodium Chloride 0.9% 100 ml @ 25 mls/hr IVPB Q8H [facility] Rx#: [id number] Sodium Chloride 0.9% 1, 750 000 ml @ 75 mls/hr IV . [id number] [facility] Rx#:[id number] metroNIDAZOLE-NS PMX 500 100 mg In Saline 1 100ml.bag @ 100 mls/hr IVPB Q8HR [facility] Rx#:[id number] Other: Voiding Method Toilet Toilet # Voids 3 - Exam GENERAL DESCRIPTION: Middle-age male lying in bed in no distress RESPIRATORY SYSTEM: Unlabored breathing , decreased breath sounds at bases HEART: S1 S2 regular rate and rhythm , ABDOMEN: Soft , no tenderness EXTREMITIES: No edema feet - Labs CBC & Chem 7: 08/20/23 04:17 08/20/23 04:17 Labs: Abnormal Lab Results - Last 24 Hours (Table) 08/18/23 08/19/23 08/19/23 Range/Units 15:17 04:01 04:01 Plt Count 442 H (140-440) X 10*3/uL BUN 6 L 5.0 L (9-20) mg/dL BUN/Creatinine Ratio 5.56 L (12.00-20.00) Ratio Calcium 8.6 L (8.7-10.3) mg/dL Total Protein 5.8 L (6.3-8.2) g/dL Albumin 3.0 L (3.5-5.0) g/dL Microbiology - Last 24 Hours (Table) 08/16/23 11:02 Blood Culture - Preliminary Blood 08/16/23 11:18 Blood Culture - Preliminary Blood Assessment and Plan (1) Leukocytosis Current Visit: Yes Status: Acute Code(s): D72.829 - ELEVATED WHITE BLOOD CELL COUNT, UNSPECIFIED SNOMED Code(s): 592896213 (2) Diverticulitis of large intestine with abscess Current Visit: Yes Status: Acute Code(s): K57.20 - DVTRCLI OF LG INT W PERFORATION AND ABSCESS W/O BLEEDING SNOMED Code(s): 9223506014523 Plan: 1patient presented to hospital with abdominal pain nausea and constipation and this patient has been diagnosed with a acute complicated diverticulitis with perforation and abscess failing outpatient oral antibiotic therapy. 2patient did have a repeat CT abdominal pelvis completed on 08/18/2023 did not mention any abscess possible diverticulitis 3-patient remains to be afebrile, patient to continue with the Zosyn along with a bowel rest and monitor clinical course closely Dictation was produced using [employer] dictation software. please excuse any grammatical, word or spelling errors. Time with Patient: Less than 30
--- NOTE | 2023-08-20 16:32 | P.PN ---
Subjective Progress Note Date: 08/20/23 Principal diagnosis: Reason for follow-up is perforated diverticulitis with abscess Patient is a 58-year-old male with a past medical history significant for reflux hypertension previous history of hernia repair presented to hospital abdominal pain he has been diagnosed with perforated diverticulitis with peridiverticular abscess. On today's evaluation that is 08/20/2023, patient has been afebrile, patient is breathing comfortably and is currently on room air, patient denies having any significant cough no chest pain shortness of breath, patient denies nausea vom iting or diarrhea and abdominal pain has decreased in intensity on the diet to be advanced further. The patient white count is 6.03, creatinine 0.8 Objective - Vital Signs Vital signs: Vital Signs Temp 97.6 F 08/20/23 12:41 Pulse 57 L 08/20/23 12:41 Resp 18 08/20/23 12:41 BP 152/81 08/20/23 12:41 Pulse Ox 98 08/20/23 12:41 FiO2 Intake & Output 08/19/23 08/20/23 08/20/23 18:59 06:59 18:59 Intake Total 950 1251 Balance 950 1251 Intake: Intake, IV Titration 1011 Amount Mvi, Adult No.4 with Vit 1011 K 10 ml Trace (Conc-1Ml/ Dose) 1 ml In Amino Acid 5%-D20w+Lytes*E* 1,000 ml @ 95 mls/hr IV .BY DURATION [facility] Rx#: [id number] Oral 950 240 Other: Voiding Method Toilet Toilet Toilet # Voids 3 2 2 # Bowel Movements 1 - Exam GENERAL DESCRIPTION: Middle-age male lying in bed in no distress RESPIRATORY SYSTEM: Unlabored breathing , decreased breath sounds at bases HEART: S1 S2 regular rate and rhythm , ABDOMEN: Soft , no tenderness EXTREMITIES: No edema feet - Labs CBC & Chem 7: 08/20/23 04:17 08/20/23 04:17 Labs: Abnormal Lab Results - Last 24 Hours (Table) 08/20/23 Range/Units 04:17 Chloride 111 H (96-109) mmol/L BUN 5.8 L (9.0-27.0) mg/dL BUN/Creatinine Ratio 7.25 L (12.00-20.00) Ratio Glucose 125 H (70-110) mg/dL Calcium 8.2 L (8.7-10.3) mg/dL Microbiology - Last 24 Hours (Table) 08/16/23 11:02 Blood Culture - Preliminary Blood 08/16/23 11:18 Blood Culture - Preliminary Blood Assessment and Plan (1) Leukocytosis Current Visit: Yes Status: Acute Code(s): D72.829 - ELEVATED WHITE BLOOD C ELL COUNT, UNSPECIFIED SNOMED Code(s): 581533558 (2) Diverticulitis of large intestine with abscess Current Visit: Yes Status: Acute Code(s): K57.20 - DVTRCLI OF LG INT W PERFO RATION AND ABSCESS W/O BLEEDING SNOMED Code(s): 3333311080025 Plan: 1patient presented to hospital with abdominal pain nausea and constipation and this patient has been diagnosed with a acute complicated diverticulitis with perforation and abscess failing outpatient oral antibiotic therapy. 2patient did have a repeat CT abdominal pelvis completed on 08/18/2023 did not mention any abscess possible diverticulitis 3-patient remains to be afebrile, we will review the CT with the radiologist if no evidence of any abscess plan will be for oral antibiotics on discharge for now continue with the [employer] Dictation was produced using [employer] dictation software. please excuse any grammatical, word or spelling errors. Time with Patient: Less than 30
[2023-08-20] MEDS: oxyCODONE-APAP 10-325MG 1 EACH TAB PO PRN (16:34)
[2023-08-20 19:58] VITALS: RESP 16
[2023-08-21 07:12] LABS: Magnesium 1.7 mg/dL (1.6-2.3); Phosphorus 2.9 mg/dL (2.5-4.5)
[2023-08-21 10:32] LABS: Basophils # (A) 0.06 X 10*3/uL (0.00-0.10); Basophils % (A) 0.6 %; Eosinophils # (A) 0.26 X 10*3/uL (0.04-0.35); Eosinophils % (A) 2.8 %; HCT 43.5 % (39.6-50.0); Lymphocytes # (A) 2.28 X 10*3/uL (0.90-5.00); Lymphocytes % (A) 24.6 %; MCH 28.2 pg (27.0-32.0); MCHC 32.2 g/dL (32.0-37.0); MCV 87.7 FL (80.0-97.0); Mean Platelet Volume 10.1 FL (9.5-12.2); Monocytes # (A) 0.84 X 10*3/uL (0.20-1.00); Monocytes % (A) 9.1 %; NRBC Per 100 WBC 0 X 10*3/uL (0.00-0.01); Neutrophils # (A) 5.78 X 10*3/uL (1.80-7.70); Neutrophils % (A) 62.6 %; Platelet Count 408 X 10*3/uL (140-440); RBC 4.96 X 10*6/uL (4.40-5.60); RDW 13.7 % (11.5-14.5); WBC 9.25 X 10*3/uL (4.50-10.00)
[2023-08-21 10:48] LABS: BUN/Creat Ratio 15.71 Ratio (12.00-20.00); Calcium 8.6 mg/dL (8.7-10.3); Carbon Dioxide 21.8 mmol/L (21.6-31.8); Chloride 109 mmol/L (96-109); Glucose 129 mg/dL (70-110); Potassium 4.6 mmol/L (3.5-5.5); Sodium 140 mmol/L (135-145)
--- NOTE | 2023-08-21 11:52 | P.PN ---
Subjective Progress Note Date: 08/21/23 Principal diagnosis: Reason for follow-up is perforated diverticulitis with abscess Patient is a 58-year-old male with a past medical history significant for reflux hypertension previous history of hernia repair presented to hospital abdominal pain he has been diagnosed with perforated diverticulitis with peridiverticular abscess. On today's evaluation that is 08/21/2023,the patient denies any fever or any chills, patient is breathing comfortably on room air, the patient denies chest pain shortness of breath and no significant cough, patient denies abdominal jacqueline n, no nausea vomiting or diarrhea, patient is feeling better wants to go home Patient white count is 9.25, creatinine 0.7, CT was reviewed with radiologist there is a small abscess 21 cm that cannot be drained CT-guided Objective - Vital Signs Vital signs: Vital Signs Temp 97.8 F 08/21/23 07:22 Pulse 60 08/21/23 07:48 Resp 16 08/21/23 07:22 BP 146/87 08/21/23 07:22 Pulse Ox 98 08/21/23 07:22 FiO2 Intake & Output 08/20/23 08/21/23 08/21/23 18:59 06:59 18:59 Intake Total 1251 1131 Balance 1251 1131 Intake: Intake, IV Titration 1011 1011 Amount Mvi, Adult No.4 with Vit 1011 1011 K 10 ml Trace (Conc-1Ml/ Dose) 1 ml In Amino Acid 5%-D20w+Lytes*E* 1,000 ml @ 95 mls/hr IV .BY DURATION [facility] Rx#: [id number] Oral 240 120 Other: Voiding Method Toilet Toilet # Voids 2 3 # Bowel Movements 1 - Exam GENERAL DESCRIPTION: Middle-age male lying in bed in no distress RESPIRATORY SYSTEM: Unlabored breathing , decreased breath sounds at bases HEART: S1 S2 regular rate and rhythm , ABDOMEN: Soft , no tenderness EXTREMITIES: No edema feet - Labs CBC & Chem 7: 08/21/23 05:57 08/21/23 05:57 Labs: Abnormal Lab Results - Last 24 Hours (Table) 08/21/23 Range/Units 05:57 Glucose 129 H (70-110) mg/dL Calcium 8.6 L (8.7-10.3) mg/dL Assessment and Plan (1) Leukocytosis Current Visit: Yes Status: Acute Code(s): D72.829 - ELEVATED WHITE BLOOD CELL COUNT, UNSPECIFIED SNOMED Code(s): 588820318 (2) Diverticulitis of large intestine with abscess Current Visit: Yes Status: Acute Code(s): K57.20 - DVTRCLI OF LG INT W PERFORATION AND ABSCESS W/O BLEEDING SNOMED Code(s): 0056760929018 Plan: 1patient presented to hospital with abdominal pain nausea and constipation and this patient has been diagnosed with a acute complicated diverticulitis with perforation and abscess failing outpatient oral antibiotic therapy. 2patient did have a repeat CT abdominal pelvis completed on 08/18/2023 did not mention any abscess possible diverticulitis, CT was reviewed with patient did have a diverticulitis with a small abscess however no access for CT- guided drainage 3-patient remains to be afebrile, keeping in mind the patient did have perforated diverticulitis and small abscess that cannot be drained we will recommend a 2-week course of IV Zosyn on discharge with the plan for repeating a CAT scan on 09/01/2023 and close outpatient follow-up prescription has been provided to the nursing staff/case mgr Dictation was produced using [employer] dictation software. please excuse any grammatical, word or spelling errors. Time with Patient: Less than 30
[2023-08-21 12:20] VITALS: BP 136/89; PULSE 53; TEMP 97.5
--- NOTE | 2023-08-21 13:38 | P.PN ---
Subjective Progress Note Date: 08/21/23 CHIEF COMPLAINT: Perforated diverticulitis HISTORY OF PRESENT ILLNESS: The patient is a 58-year-old male admitted as transfer from outside facility for perforated diverticulitis including abscess of the lower abdomen. Patient reports he is tolerating diet. He has no further abdominal pain. No leukocytosis. ROS: No reports of nausea and vomiting. No fevers or chills. No new chest pain. No productive sputum PHYSICAL EXAM: VITAL SIGNS: Reviewed CONSTITUTIONAL: Well developed and in no acute distress. EYES: Conjuctivae without sclera icterus. Extraocular movements grossly intact. HEAD, EARS, NOSE, THROAT: Moist buccal mucosa. Head is atraumatic, normocephalic. Hears conversational speech. No nasal drainage. RESPIRATORY: Non-labored respirations and equal bilateral excursions. CARDIOVASCULAR: Palpable 2+ radial pulses. ABDOMEN: Nontender. MUSCULOSKELETAL: No gross deformity of the lower extremities noted. No clubbing. No cyanosis. SKIN: Good skin turgor. Well perfused. NEUROLOGIC: Cranial nerves II through XII grossly intact. No focal or lateralizing signs. PSYCH: Appropriate affect. Alert and oriented to person, place and time. CLINICAL LABS: Reviewed. WBC normal. ASSESSMENT: 1. Perforated diverticulitis complicated with abscess sigmoid colon 2. Hypertensive heart disease 3. Hyperlipidemia PLAN: 1. Antibiotic management per infectious disease. 2. Close outpatient follow-up with infectious disease and surgery for anticipated surgical resection and colonoscopy in the future 3. Patient cleared from a surgical standpoint for discharge when medically stable Objective - Vital Signs Vital signs: Vital Signs Temp 97.5 F L 08/21/23 11:56 Pulse 53 L 08/21/23 11:56 Resp 16 08/21/23 11:56 BP 136/89 08/21/23 11:56 Pulse Ox 97 08/21/23 11:56 FiO2 Intake & Output 08/20/23 08/21/23 08/21/23 18:59 06:59 18:59 Intake Total 1251 1131 Balance 1251 1131 Intake: Intake, IV Titration 1011 1011 Amount Mvi, Adult No.4 with Vit 1011 1011 K 10 ml Trace (Conc-1Ml/ Dose) 1 ml In Amino Acid 5%-D20w+Lytes*E* 1,000 ml @ 95 mls/hr IV .BY DURATION [facility] Rx#: [id number] Oral 240 120 Other: Voiding Method Toilet Toilet # Voids 2 3 # Bowel Movements 1 - Labs CBC & Chem 7: 08/21/23 05:57 08/21/23 05:57 Labs: Abnormal Lab Results - Last 24 Hours (Table) 08/21/23 Range/Units 05:57 Glucose 129 H (70-110) mg/dL Calcium 8.6 L (8.7-10.3) mg/dL
--- NOTE | 2023-08-24 18:09 | CDI ---
Documentation Clarification Form Date: 08/24/2023 05:57:09 PM From: Dolores Ahmadi RN, CCDS Phone: [phone] Admit Date: 08/16/2023 12:08:00 PM Patient Name: Jimbo Mccullough Visit Number: [id number] Discharge Date: 08/21/2023 03:53:00 PM ATTENTION: The Clinical Documentation Specialists (CDI) and [facility] Coding Staff appreciate your assistance in clarifying documentation. Please respond to the clarification below the line at the bottom and electronically sign. The CDI & [facility] Coding staff will review the response and follow-up if needed. Please note: Queries are made part of the Legal Health Record. If you have any questions, please contact the author of this message via ITS. Dr. Christiano Mallory Resolving peritonitis is documented in your 08/19 progress note which may lack sufficient clinical evidence/support in the medical record. Additional clarification is requested. History/Risk Factors: GERD, HTN and gastric ulcers. Presents with abdominal pain. Found to have acute sigmoid diverticulitis with abscess. Clinical Indicators: 08/17 AXR: Marked mural thickening in the sigmoid colon with some inflammatory pericolonic fat stranding. No free air. No free fluid. Abnormal appearance consisting mostly of mural thickening in the distal sigmoid colon. Differential diagnostic considerations might include diverticulitis." H&P: "Acute sigmoid diverticulitis with 4.6 cm abscess adjacent to the sigmoid colon." 08/17 Surgery: "Abdomen: No peritonitis. Mild tenderness suprapubic and left lower quadrant." 08/19 Surgery: "Resolving peritonitis. Patient will be discharged home." Treatment: IV Flagyl 500mg Q8H 08/16-08/20; TPN; IV Zosyn 3.375gm Q8H 08/15-08/20; 1L 0.9 NS IV bolus x1 on 08/15 Please clarify the diagnosis: [xx ] Yes, Peritonitis was present as evidenced by (additional clinical support): ____diverticulitis [ ] No, Peritonitis was ruled out [ ] Other (please specify diagnosis) [ ] Unable to determine MTDD
--- NOTE | 2023-08-28 04:35 | P.DS ---
Providers Date of admission: 08/16/23 12:08 Expected date of discharge: 08/21/23 Attending physician: John Cai Consults: 08/16/23 12:17 Consult Physician Urgent Consulting Provider: Alyssa Carvalho Consult Reason/Comments: diverticulitis w abscess Do you want consulting provider notified?: Yes Consult Physician Urgent Consulting Provider: Hermes Isabel Consult Reason/Comments: diverticulitis w abscess Do you want consulting provider notified?: Yes Primary care physician: Lashae Echevarria DO Hospital Course: Final diagnosis Acute sigmoid diverticulitis with 4.6 cm abscess adjacent to the sigmoid colon. Abdominal pain mainly left lower quadrant secondary to above, improved Hypertension GERD History of gastric ulcer as a kid Bipolar disorder Current everyday smoker Occasional marijuana use Polysubstance use currently on Suboxone GERD DVT prophylaxis GI prophylaxis Full code Discharge disposition Patient is being discharged in a stable condition with guarded prognosis to home . Patient will follow-up with Dr. Lashae Echevarria in the outpatient setting upon discharge. Patient is to continue with IV antibiotics and close outpatient follow-up with infectious disease and general surgery as scheduled. Total time taken is greater than 35 minutes. Hospital course This is a 58-year-old male who was recently admitted with abdominal pain found to have acute sigmoid diverticulitis being closely monitored. General surgery and infectious disease following. Patient has received a PICC line and will be scheduled for outpatient IV antibiotics. Patient reports to feeling improved and was maintained on TPN, has been weaned off and tolerating low fiber diet. Patient will continue on IV antibiotic therapy and close outpatient follow-up with general surgery. Patient has been cleared by consultations. Please refer to other consultation notes for further HPI. Currently no reports of chest pain, shortness of breath, or palpitations. Patient is afebrile. No reports of nausea or vomiting and patient is tolerating diet. Patient will be discharged home today. Guarded prognosis and high risk for readmission given patient's comorbidities. Physical exam: Gen: This is a 58-year-old male who is awake, alert and oriented x 3, well- developed, well-nourished, elderly appearing HEENT: Head is atraumatic, normocephalic. Pupils equal, round. Sclerae is anicteric. NECK: Supple. No JVD. No lymphadenopathy. No thyromegaly. LUNGS: Clear to auscultation. No wheezes or rhonchi. No intercostal retractions. HEART: Regular rate and rhythm. No murmur. ABDOMEN: Soft. Bowel sounds are present. No masses. No tenderness. EXTREMITIES: No pedal edema. No calf tenderness. NEUROLOGICAL: Patient is awake, alert and oriented x3. Cranial nerves 2 through 12 are grossly intact. Please refer to medication reconciliation sheet for a list of medications. The impression and plan of care has been dictated by Angela Perez, Nurse Practitioner as directed. Dr. Kyle MD I have performed a history and examination and MDM of this patient, discussed the same with the dictator, and agree with the dictator's assessment and plan as written ,documented as a scribe. Based on total visit time, I have performed more than 50% of the visit. Patient Condition at Discharge: Fair Plan - Discharge Summary Discharge Rx Participant: Yes New Discharge Prescriptions: New Nicotine 21Mg/24Hr Patch [Habitrol] 1 patch TRANSDERM DAILY patch Acetaminophen Tab [Tylenol] 1,000 mg PO Q6H tab Piperacillin-Tazobactam [Zosyn] 3.375 gm IVPB Q8H 14 Days #42 each Pantoprazole [Protonix] 40 mg PO DAILY #30 tab Continue Atorvastatin [Lipitor] 20 mg PO DAILY Omeprazole [PriLOSEC] 20 mg PO DAILY Tiotropium 2.5 Mcg/Puff [Spiriva Respimat 2.5 Mcg] 2 puff INHALATION RT-DAILY Buprenorphine HCl/Naloxone HCl [Suboxone 4 mg-1 mg Sl Film] 1 film SL BID Metoprolol Succinate (ER) [Toprol XL] 100 mg PO DAILY amLODIPine [Norvasc] 10 mg PO DAILY Fenofibrate Nanocrystallized [Tricor] 145 mg PO DAILY Albuterol Sulfate [Ventolin HFA] 1 - 2 puff INHALATION RT-Q4H PRN PRN Reason: Shortness Of Breath Changed Losartan [Cozaar] 50 mg PO BID #60 tab Discharge Medication List Atorvastatin [Lipitor] 20 mg PO DAILY 12/12/22 [History] Fenofibrate Nanocrystallized [Tricor] 145 mg PO DAILY 12/12/22 [History] Metoprolol Succinate (ER) [Toprol XL] 100 mg PO DAILY 12/12/22 [History] Omeprazole [PriLOSEC] 20 mg PO DAILY 12/12/22 [History] amLODIPine [Norvasc] 10 mg PO DAILY 12/12/22 [History] Albuterol Sulfate [Ventolin HFA] 1 - 2 puff INHALATION RT-Q4H PRN 08/16/23 [History] Buprenorphine HCl/Naloxone HCl [Suboxone 4 mg-1 mg Sl Film] 1 film SL BID 08/16/23 [History] Tiotropium 2.5 Mcg/Puff [Spiriva Respimat 2.5 Mcg] 2 puff INHALATION RT-DAILY 08/16/23 [History] Acetaminophen Tab [Tylenol] 1,000 mg PO Q6H tab 08/21/23 [Rx] Losartan [Cozaar] 50 mg PO BID #60 tab 08/21/23 [Rx] Nicotine 21Mg/24Hr Patch [Habitrol] 1 patch TRANSDERM DAILY patch 08/21/23 [Rx] Pantoprazole [Protonix] 40 mg PO DAILY #30 tab 08/21/23 [Rx] Piperacillin-Tazobactam [Zosyn] 3.375 gm IVPB Q8H 14 Days #42 each 08/21/23 [Rx] Follow up Appointment(s)/Referral(s): Alyssa Carvalho MD [STAFF PHYSICIAN] - 09/05/23 9:45 am Lashae Echevarria DO [Primary Care Provider] - 1-2 days [facility], [REFERRING] - 1 Week ([facility] will contact you to arrange delivery of your iv antibiotics) [facility] [NON-STAFF] - 1 Week ([facility] will call [facility] to arrange a visit. ) Hermes Isabel MD [STAFF PHYSICIAN] - 2 Weeks (please call for appt, no answer at the office at this time) Ambulatory/Diagnostic Orders: Miscellaneous Radiology Order [RAD.AMB] Time Frame: 09/01/23, Location: None Selected Patient Instructions/Handouts: Losartan (By mouth), Pantoprazole (By mouth), Diverticulitis (DC), Diverticulitis Diet (GEN) Activity/Diet/Wound Care/Special Instructions: Activity limited until follow-up Follow-up with primary care provider on discharge Follow-up with general surgery in [address] imaging in 10 to 13 days prior to infectious disease appointment for further evaluation of abscess and diverticulitis, discussed with general surgery regarding outpatient CT scan Follow-up with infectious disease in 2 weeks Continue with antibiotic therapy Continue full liquid diet until evaluated again by general surgery and repeat imaging Discharge Disposition: HOME WITH HOME HEALTH SERVICES
--- NOTE | 2023-10-05 10:15 | IR ---
EXAMINATION TYPE: IR cvc insert >=5 years DATE OF EXAM: 10/05/2023 COMPARISON: NONE HISTORY: Fluoroscopy time. Fluoroscopy was provided to the referring clinician.
== END 2023-08-21 15:53 | disposition home health service (06) | DRG 391 ==
LOC: EC 10:35 → 5NMEDONC 12:08
PROVIDERS: ADMIT Internal Medicine; ATTEND Internal Medicine
PROC: 02HV33Z Insertion of Infusion Device into Superior Vena Cava, Percutaneous Approach (ICD-10-PCS; principal; 2023-08-18 18:20)
DX: K57.20 Diverticulitis of large intestine with perforation and abscess without bleeding (principal); K65.9 Peritonitis, unspecified; F17.200 Nicotine dependence, unspecified, uncomplicated; F31.9 Bipolar disorder, unspecified; I11.9 Hypertensive heart disease without heart failure; I34.0 Nonrheumatic mitral (valve) insufficiency; K21.9 Gastro-esophageal reflux disease without esophagitis; K59.00 Constipation, unspecified; E78.5 Hyperlipidemia, unspecified; Z79.899 Other long term (current) drug therapy; Z82.49 Family history of ischemic heart disease and other diseases of the circulatory system; Z87.11 Personal history of peptic ulcer disease; Z88.5 Allergy status to narcotic agent; Z88.8 Allergy status to other drugs, medicaments and biological substances
CPT/HCPCS: 36415; 36573; 74177; 80048; 80053; 81003; 82150; 82330; 83605; 83690; 83735; 84100; 84478; 85025; 87040; 93005; 93306; 94640; 96361; 96365; 96375; 99285; 99406